=== PATIENT | male | born 1995 | race Caucasian/White ===

== ENCOUNTER 2022-10-26 12:09 | Inpatient (IN) | payer MEDICAID, SELFPAY ==
[2022-10-26 12:41] VITALS: BMI 22.4
[2022-10-26 14:00] VITALS: BP 146/98; PULSE 88; RESP 16; TEMP 36.9; O2SAT 97
--- NOTE | 2022-10-26 14:52 | PC.NURSE ---
PT IS A DIRECT ADMIT FROM [facility]. PT WAS BROUGHT TO [facility] BY POLICE AFTER A CONFLICT WITH PARENTS. IN THE AFFIDAVIT HIS FATHER WROTE THAT THEY WERE TALKING TO PT ABOUT THE FAMILY CAT AND HOW SHE HAD BEEN SHOWING SIGNS OF DECLINE. PT BECAME AGITATED AND TOLD FATHER THAT THE CAT CANNOT HE NAMED HIM AND IF THE CAT THEN HE WOULD TADEO PUNCH HIM SO HARD THAT HIS FATHER WOULD NOT BE ABLE TO HAVE ANY MORE KIDS AFTER PT IS GONE. PT PARENTS BOTH STATE IN THE AFFIDAVITS THAT HIS MOODS HAVE BEEN EXTREME HIGHS OR EXTREME LOWS. UPON ADMIT TO OUR UNIT PT IS PACING THE WHOLE TIME DURING ASSESSMENT. PT APPEARED ANXIOUS, AND PT WAS RAMBLING AFTER EVERY QUESTION. PT CONTINUED TO PACE AFTER ASSESSMENT.
--- NOTE | 2022-10-26 15:32 | PC.NURSE ---
PT IS PACING THE HALLWAYS, PT DENIES AH/VH. HOWEVER, PT APPEARS TO BE INTERNALLY OCCUPIED. PT IS CONVERSING WITH SELF AND GESTURING WHILE PACING. PT CONTINUES THIS BEHAVIOR EVEN WHEN NOT PACING. WILL CONTINUE TO MONITOR.
--- NOTE | 2022-10-26 17:51 | PC.NURSE ---
PT ARRIVED TO UNIT AT 1209 PM. WHILE LOOKING THROUGH HIS 96 HOUR PAPERWORK THIS RN HAD DIFFICULTIES FINDING JUDGES SIGNATURE AUTHENTICATING THE PAPERWORK FROM THE PRIOR FACILITY. DUE TO THIS THIS RN WANTED TO SPEAK WITH DOCTOR TO ENSURE THAT PT IS ACTUALLY ON A 96 HOUR HOLD BEFORE PROVIDING PAPERWORK TO PT. THIS RN SPOKE WITH ABOUT PAPERWORK AND WAS ABLE TO LOCATE THE SIGNATURE TO AUTHENTICATE 96 HOUR HOLD. PAPERWORK WAS IMMEDIATELY SERVED TO PT UPON FINDING THIS INFORMATION.
[2022-10-26 21:37] VITALS: BP 114/71; PULSE 113; RESP 17; TEMP 36.9; O2SAT 90
--- NOTE | 2022-10-27 05:09 | PC.NURSE ---
Security was in the unit checking on the status of the patient's when this pt came to the nurses station without a shirt on. Pt became hyperfixated on the upscale security officer, becoming aggressive when the staff told him that he had a shirt on out in the hallway. Pt called the upscale security officer a faggot then stated do you have a problem . This nurse got the pts attention by calling his name and instructing him that he had to be clothed at all times. Pt began making several hand gestures, including pray hand, then laughing maniacally and walking back to his room. After this even took place the pt came out yet again looking for the upscale security officer to see if he wanted to have a conversation with him . Informed the pt that that was the upscale security officer, and he was performing rounds throughout the hospital to which he stated he secured you didn't he . Informed pt that he did not need to speak to staff that way, to which he laughed maniacally and went back to his room.
--- NOTE | 2022-10-27 06:48 | W.PM.NPUH&PS ---
Providers/Chief Complaint Admitting Physician: Luke Sykes MD Chief Complaint: Fit for confinement [facility] NPU History of Present Illness Jhonatan Clemente is a 27 year old male who presented to the outside hospital with psychosis on a 96-hour hold. He was transferred to [facility] and admitted to the neuropsychiatric unit for definitive treatment of those issues. He reports that he has had previous psychiatric hospitalizations. When asked about previous treatment he asked if it would just be faster to talk to his parents about his medical history. When asked about being on medications in the past, he stated ?if you consider marijuana a medication.? He reports that he has smoked cigarettes, and asked this aligner typewriter if I had cigarettes because he would appreciate getting one. He denies vaping in awhile. He reports that he has not had alcohol ?in a minute,? for a few weeks since he has been to a bunch of hospitals. He denies marijuana use for about three weeks, he reports probably using marijuana regularly. He denies methamphetamine use and endorses that he tried cocaine once. He reports that he went to drug rehabilitation. He then left the interview. He was quite bizarre during the interview with very demonstrative arm gestures and facial contortions depending on how annoyed he was with the question. Was unable to get any additional history PSYCHIATRIC HISTORY: As above. SUBSTANCE ABUSE HISTORY: As above. Meds NPU Home Medications Medication Instructions Recorded Confirmed Last Taken Type No Known Home Medications 10/26/22 10/26/22 Unknown History Allergies Allergy/AdvReac Type Severity Reaction Status Date / Time No Known Allergies Allergy Verified 10/26/22 23:09 Mental Status Exam MSE Comments: This is a well-nourished, well-developed slender, white male, in hospital scrubs, with adequate grooming and eye contact. No abnormal movements except for significant psychomotor agitation and frequent gesturing and directions where people are not present and in ways that do not make sense in relation to the gesture. Mostly uncooperative with exam in moderate to extreme distress. Speech was normal rate and volume. Mood described as good; affect bizarre and labile. Thought process, disorganized. Thought content: patient denied any suicidal or homicidal ideation, there were no delusions reported but clear bizarre, paranoid and grandiose delusions noted, patient denied any auditory or visual hallucinations but was clearly attending to internal stimuli. Attention, concentration, and memory appeared mostly unreliable, but none were formally tested. Alert and oriented times person and place. Insight, judgment and impulse control are impaired. Vitals/I&O/Wt Last Vital Signs Temp 98.4 F 10/26/22 21:37 Pulse 113 H 10/26/22 21:37 Resp 17 10/26/22 21:37 BP 114/71 10/26/22 21:37 Pulse Ox 90 10/26/22 21:37 O2 Del Method Room Air 10/26/22 21:37 Weight last 48 hrs Weight 74.843 kg A&P Assessment and plan (1) Bipolar disorder with psychotic features: (2) Tiesha: Plan This is a 27-year-old white male with a reported history of previous bipolar episode at least once who presents in avel tiesha with significant movements of limited purpose 1. Continue current medication. 2. Encourage individual, group, and milieu therapy. 3. Continue q-15-minute checks for safety. 4. Recommend sober living treatment at the highest level of care to which the patient is willing to commit. 5. Plan to initiate 21-day hold tomorrow so that we will have a better chance to medicate appropriately sooner. Attestations NPU Medical Necessity Statement*: Inpatient hospitalization is medically necessary and the clinically appropriate intervention, at this time. We will monitor medications and make changes as indicated. Patient will be in the hospital for over two midnights. Likely length of stay is 10-14 days. Coding Level of Care Code Acute Code for Chg Fwd Diagnoses Bipolar disorder with psychotic features F31.9 Tiesha F30.9
--- NOTE | 2022-10-27 07:47 | PC.NURSE ---
PT IS PACING THE HALLWAYS. PT APPEARS INTERNALLY OCCUPIED. PT APPROACHED THE NURSES STATION AND BEGAN BEATING ON HIS CHEST LIKE A GORILLA. THIS RN ASKED PT IF HE WAS OK, PT BECAME QUICKLY IRRITATED STATING DOES THIS FUCKING BOTHER YOU GUYS THIS RN REPLIED WITH IM JUST WONDERING WHAT YOU ARE DOING. PT THEN REPLIED IM HELPING, DO YOU KNOW WHAT HELP MEANS? WELL I DO, SO CAN YOU SHUT THE FUCK UP? PT PROCEEDED TO BEAT ON CHEST LIKE A GORILLA FOR ANOTHER 10 SECONDS AND THEN BEGAN PACING THE HALLWAYS AGAIN. PT THEN APPROACHED THE NURSES STATION AND LOOKED AT THIS RN AND MALACHI NAIR AND STATED DO YOU GUYS WANNA FUCK? WHEN STAFF REPLAIED NO AND ATTEMPTED TO EDUCATE ON APPROPRIATENESS PT BEGAN STATING WELL THAT MEANS REALITY IS REAL BECAUSE YOU TWO DONT WANT TO FUCK ME.
--- NOTE | 2022-10-27 12:26 | PC.NURSE ---
PT CONTINUES TO PACE THE HALLWAYS. PT REMAINS LABILE. PT STILL APPEARS INTERNALLY OCCUPIED WHILE CONTINUING TO DENIES HALLUCINATIONS OF ALL KINDS. PT CONTINUES TO GESTURE TO SELF. PT ALSO GESTURES AT STAFF AND DOES NOT TALK BUT BECOMES FRUSTRATED WHEN NOT UNDERSTOOD. PT HAS BEEN EDUCATED ON THE IMPORTANCE OF COMMUNICATION. PT RESISTANT TO LEARNING.
[2022-10-27 14:00] VITALS: BP 136/97; PULSE 80; RESP 20; TEMP 36.9; O2SAT 96
[2022-10-27] MEDS: trazodone 50 mg Tablet PO (19:15)
[2022-10-27] MEDS: hyDROXYzine 25 mg Capsule 50 MG PO (19:15)
[2022-10-27] MEDS: LORazepam 2 mg/mL INJ 1 mL IM (19:51)
[2022-10-27] MEDS: diphenhydrAMINE 50 mg/mL SDV 1mL IM (19:53)
[2022-10-27] MEDS: haloperidol inj 5 mg/mL INJ 1 mL IM (19:53)
[2022-10-27 22:18] VITALS: RESP 17
[2022-10-28] MEDS: diphenhydrAMINE 50 mg Capsule PO (12:25)
[2022-10-28] MEDS: haloperidol 5 mg Tablet PO (12:25)
[2022-10-28] MEDS: LORazepam 2 mg Tablet PO (12:26)
--- NOTE | 2022-10-28 12:31 | PC.NURSE ---
Administered oral B52 to patient for touching patients, egging patient's on in an attempt to fight them. 5mg Haldol, 50mg Benadryl, 2mg Ativan.
--- NOTE | 2022-10-28 13:40 | PC.NURSE ---
pt continues to be verbally abusive to staff and other patients, pt continues to ask one on one sitter if he wants to see his tabatha. attempts to verbally de escalate pt is unsuccessful. pt walking in hallway being disruptive towards other patients.
[2022-10-28] MEDS: OLANZapine 5 mg ODT PO (13:43)
[2022-10-28 14:00] VITALS: BP 132/81; PULSE 110; RESP 20; TEMP 36.6; O2SAT 95
--- NOTE | 2022-10-28 17:48 | W.PM.NPUPNS ---
Subjective NPU Subjective: Patient presented today reporting that he is doing okay. But he is clearly not okay. He continues to have aimless and purposeless hyperkinetic behaviors and not be able to engage in regular [id number] conversation and is unable to sit still. He did require as needed medication with limited impact. We discussed the fact that we were applying for a 21-day hold now instead of next week when his 96-hour hold expires because his need for interventions are that dire. Mental Status Exam MSE Comments: This is a well-nourished, well-developed slender, white male, in hospital scrubs, with adequate grooming and eye contact. No abnormal movements except for significant psychomotor agitation and frequent gesturing and directions where people are not present and in ways that do not make sense in relation to the gesture. Mostly uncooperative with exam in moderate to extreme distress. Speech was normal rate and volume. Mood described as fine; affect bizarre and labile. Thought process, disorganized. Thought content: patient denied any suicidal or homicidal ideation, there were no delusions reported but clear bizarre, paranoid and grandiose delusions noted, patient denied any auditory or visual hallucinations but was clearly attending to internal stimuli. Attention, concentration, and memory appeared mostly unreliable, but none were formally tested. Alert and oriented times person and place. Insight, judgment and impulse control are impaired. Vitals/I&O/Wt Last Vital Signs Temp 98 F 10/28/22 14:00 Pulse 110 H 10/28/22 14:00 Resp 12 10/28/22 20:16 BP 132/81 10/28/22 14:00 Pulse Ox 95 10/28/22 14:00 O2 Del Method Room Air 10/26/22 21:37 A&P Assessment and plan (1) Bipolar disorder with psychotic features: (2) Priscila: Plan This is a 27-year-old white male with a reported history of previous bipolar episode at least once who presents in avel priscila with significant movements of limited purpose 1. Continue current medication. 2. Encourage individual, group, and milieu therapy. 3. Continue q-15-minute checks for safety. 4. Recommend sober living treatment at the highest level of care to which the patient is willing to commit. 5. Submitted 21-day hold paperwork today so that we will have a better chance to medicate appropriately sooner. Attestations NPU Medical Necessity Statement*: Inpatient hospitalization is medically necessary and the clinically appropriate intervention, at this time. We will monitor medications and make changes as indicated. Likely length of stay is 10-14 days. Coding Level of Care Code Acute Code for Chg Fwd Diagnoses Bipolar disorder with psychotic features F31.9 Priscila F30.9
[2022-10-28 20:16] VITALS: RESP 12
--- NOTE | 2022-10-29 05:58 | PC.NURSE ---
Patient has been pacing the hallway & attempting to intimidate, antagonize & trigger the staff & peers. At one point, he walked out of his room & made the statement I can flush my shit or throw it you , threatened to whoop ass . He told this RN to get my fucking coffee , he continues to pace the whaley.
--- NOTE | 2022-10-29 07:46 | W.PM.NPUPNS ---
Subjective NPU Subjective: Patient presents today continuing to be extremely hyperkinetic with purposeless behavior including skipping of the hallways etc. he had received as needed medication yesterday and sleeping well until the account development associate came and served for his 21-day hold and he has not been asleep since then. That was around 11 PM last night. We discussed changing his room assignment to assist in getting him a place to let out his energy without concerning others. Mental Status Exam MSE Comments: This is a well-nourished, well-developed slender, white male, in hospital scrubs, with adequate grooming and eye contact. No abnormal movements except for significant psychomotor agitation and frequent gesturing and directions where people are not present and in ways that do not make sense in relation to the gesture. Mostly uncooperative with exam in moderate to extreme distress. Speech was normal rate and volume. Mood described as fine; affect bizarre and labile. Thought process, disorganized. Thought content: patient denied any suicidal or homicidal ideation, there were no delusions reported but clear bizarre, paranoid and grandiose delusions noted, patient denied any auditory or visual hallucinations but was clearly attending to internal stimuli. Attention, concentration, and memory appeared mostly unreliable, but none were formally tested. Alert and oriented times person and place. Insight, judgment and impulse control are impaired. Vitals/I&O/Wt Last Vital Signs Temp 97.9 F 10/29/22 20:58 Pulse 119 H 10/29/22 20:58 Resp 18 10/29/22 20:58 BP 137/85 10/29/22 20:58 Pulse Ox 96 10/29/22 20:58 O2 Del Method Room Air 10/29/22 20:58 Weight last 48 hrs Weight 74.298 kg A&P Assessment and plan (1) Bipolar disorder with psychotic features: (2) Priscila: Plan This is a 27-year-old white male with a reported history of previous bipolar episode at least once who presents in avel priscila with significant movements of limited purpose 1. Continue current medication. 2. Encourage individual, group, and milieu therapy. 3. Continue q-15-minute checks for safety. 4. Recommend sober living treatment at the highest level of care to which the patient is willing to commit. 5. Submitted 21-day hold paperwork 10/28/2022 with hearing 10/31/2022 so that we will have a better chance to medicate appropriately and sooner. Staff counseled on attempting as needed medications sooner in his decompensations in an attempt to avoid escalations. Attestations NPU Medical Necessity Statement*: Inpatient hospitalization is medically necessary and the clinically appropriate intervention, at this time. We will monitor medications and make changes as indicated. Likely length of stay is 10-14 days. Coding Level of Care Code Acute Code for [facility] Fwd Diagnoses Bipolar disorder with psychotic features F31.9 Priscila F30.9
[2022-10-29] MEDS: haloperidol 5 mg Tablet PO ×2 (11:14→19:34)
[2022-10-29] MEDS: LORazepam 2 mg Tablet PO ×2 (11:14→19:34)
[2022-10-29] MEDS: diphenhydrAMINE 50 mg Capsule PO ×2 (11:14→19:34)
--- NOTE | 2022-10-29 11:15 | PC.NURSE ---
Administered 5mg Haldol, 2mg lorazepam, and 50mg benadryl for agitation, verbal threats, threats to harm others, and sexual misconduct. Patient offered to show this nurse his penis, patient said he was masterbating while this nurse was standing outside his shower. Patient threatened to punch the riley and flip out.
[2022-10-29 14:00] VITALS: RESP 16
[2022-10-29 20:58] VITALS: BP 137/85; PULSE 119; RESP 18; TEMP 36.6; O2SAT 96
[2022-10-30] MEDS: haloperidol 5 mg Tablet PO ×2 (05:31→19:02)
[2022-10-30] MEDS: LORazepam 2 mg Tablet PO ×2 (05:31→19:02)
[2022-10-30] MEDS: diphenhydrAMINE 50 mg Capsule PO ×2 (05:31→19:02)
--- NOTE | 2022-10-30 05:37 | PC.NURSE ---
Patient got up at approximately 0500 & started pacing [facility], belittling 1:1 constantly as he paces. He walked into a patient's room to get water on his toothbrush , he was immediately redirected by staff & proceeded to cuss staff. He came to the RN station to ask what day it was, he was told Monday , then asked what day of the month & was told the , then asked what month & was told October, he then proceeded to ask this RN why did we have to go all the way around that , then called this RN a indigo zhong . As he is pacing the hallway, he is telling the 1:1 you are a stupid retard, you don't even walk right . This RN gave him an oral B52.
[2022-10-30 13:53] VITALS: BP 112/77; PULSE 89; RESP 16; TEMP 37.1; O2SAT 98
--- NOTE | 2022-10-30 17:50 | P.NPUPN_ITS ---
Subjective NPU Subjective: Patient is a 27-year-old white male transferred here admitted with priscila after making threats to his father. The patient had been placed off one-to-one today as he had not made any threats to others. Staff notes the patient had difficulties with sleep. He had been informed of the likelihood of him being able to meet with a water service supervisor regarding his threats towards his father. The patient had continued to appear suspicious and wandered around the unit without any purposeful behavior. He had acknowledged previously having been manic. But had a moment of clarity this time as opposed to being manic and being hospitalized in the past for this behavior. Mental Status Exam MSE Comments: This is a well-nourished, well-developed slender, white male, in hospital scrubs, with adequate grooming and eye contact. No abnormal movements except for significant psychomotor agitation. He was unfriendly and uncooperative with exam in moderate to extreme distress. Speech was normal in rate, rhythm and normal volume. Mood described as fine; affect was intense and irritable. Thought process was tangential. Thought content: patient denied any suicidal or homicidal ideation, there were no delusions reported but clear bizarre, paranoid and grandiose delusions noted. Patient denied any auditory or visual hallucinations but was clearly attending to internal stimuli. Attention, concentration, and memory appeared mostly unreliable, but none were formally tested. Alert and oriented times person and place. Insight, judgment and impulse control are impaired. Vitals/I&O/Wt Last Vital Signs Temp 98.8 F 10/30/22 13:53 Pulse 89 10/30/22 13:53 Resp 16 10/30/22 13:53 BP 112/77 10/30/22 13:53 Pulse Ox 98 10/30/22 13:53 O2 Del Method Room Air 10/29/22 20:58 Weight last 48 hrs Weight 74.298 kg A&P Assessment and plan (1) Bipolar disorder with psychotic features: (2) Priscila: Plan This is a 27-year-old white male with a reported history of previous bipolar episode at least once who presents in avel priscila with significant movements of limited purpose 1. Continue current medication. 2. Encourage individual, group, and milieu therapy. 3. Continue q-15-minute checks for safety. 4. Recommend sober living treatment at the highest level of care to which the patient is willing to commit. 5. Submitted 21-day hold paperwork 10/28/2022 with hearing 10/31/2022 so that we will have a better chance to medicate appropriately and sooner. Staff counseled on attempting as needed medications sooner in his decompensations in an attempt to avoid escalations. Attestations NPU Medical Necessity Statement*: Inpatient hospitalization is medically necessary and the clinically appropriate intervention, at this time. We will monitor medications and make changes as indicated. Likely length of stay is 10-14 days. Coding Level of Care Code Acute Code for Chg Fwd Diagnoses Bipolar disorder with psychotic features F31.9 Priscila F30.9
--- NOTE | 2022-10-30 19:02 | PC.NURSE ---
PATIENT VERBALLY AGGRESSIVE AND CREATING A HOSTILE ENVIRONMENT ON THE UNIT. ADMINISTERED 2MG ATIVAN, 5MG HALDOL, AND 50MG BENADRYL TO PATIENT. PATIENT TOOK MEDICATION WITH NO ISSUE. WILL CONTINUE TO MONITOR PATIENT CLOSELY.
[2022-10-30 22:00] VITALS: BP 132/95; PULSE 111; RESP 18; TEMP 36.8; O2SAT 97
[2022-10-31 06:00] VITALS: BP 127/91; PULSE 78; RESP 18; TEMP 36.3; O2SAT 97
--- NOTE | 2022-10-31 06:23 | PC.NURSE ---
Pt came to the nurses station stating he needed to go outside and get his socks he left outside yesterday, b/c he took them off to walk barefoot in the dirt . This nurse explained that there would be no socks outside b/c they would've been thrown in the trash. Pt became argumentative with this nurse, and explained that the courtyard gets cleaned up, and if they were left outside then they would've been thrown in the trash. Explained to pt that he could have a new pair of socks if he wanted them. Pt begrudgingly took the new pair of socks and began to pace up and down the hallway. One on one care and redirection provided w/minimal effect.
[2022-10-31] MEDS: diphenhydrAMINE 50 mg Capsule PO ×2 (06:44→14:05)
[2022-10-31] MEDS: LORazepam 2 mg Tablet PO ×2 (06:44→14:05)
[2022-10-31] MEDS: haloperidol 5 mg Tablet PO ×2 (06:44→14:05)
--- NOTE | 2022-10-31 06:45 | PC.NURSE ---
Pt standing at the nurses station staring inside. This nurse asked if there was anything she could do for him, and he stated you could shut the fuck up and stop looking at me. Pt then stomped away from the nurses station. PRN Lorazapam, haldol, and Benadryl administered for increasing agitation and anxiety.
--- NOTE | 2022-10-31 11:37 | PC.NURSE ---
pt is pacing the hallways. pt will occasionally stop in front of the nurses station and just stares. pt is not talking and when asked what he needed pt stated nothing . pt appears flat.
[2022-10-31 14:00] VITALS: BP 127/85; PULSE 98; RESP 18; TEMP 36.5; O2SAT 96
--- NOTE | 2022-10-31 14:06 | PC.NURSE ---
Patient verbally aggressive to patient. Patient wanting to go to dayroom and call him a pussy. Patient instigating other patients, causing a hostile environment on the unit. Administered 50mg Benadryl, 2mg Ativan, 5mg Haldol to patient. will continue to monitor.
--- NOTE | 2022-10-31 15:17 | PC.NURSE ---
off unit for [address]
--- NOTE | 2022-10-31 16:22 | PC.NURSE ---
return to unit from court
--- NOTE | 2022-10-31 19:37 | W.PM.NPUPNS ---
Subjective NPU Subjective: Patient is a 27-year-old white male transferred here admitted with priscila after making threats to his father. The patient was committed for 21-day hold after appearing in front of the nanotechnology technician. He had reported that he had not been offered medications to manage his problem. He had reported that he did not need any medications to manage his priscila. He had continued to appear intrusive and struggled with managing his impulses. He had continued to make odd gestures and appeared significantly hostile while repeatedly complaining to the technical report writer of this note that he did not trust him as he had stated that the technical report writer of this note had not been looking at him in the eye all of the time. The patient had continued to appear rude and demanding on the unit. He had admitted to the use of marijuana and stated that he had previously had a manic episode in the past approximately 2 years ago. He had repeated to the technical report writer of this note that he was looking at someone who was scared . He continued to show evidence of impaired sleep having slept only 3 hours at night while reporting that he had been faking it . Mental Status Exam MSE Comments: This is a well-nourished, well-developed slender, white male, in hospital scrubs, with adequate grooming and intense eye contact. No abnormal movements except for significant psychomotor agitation. He was unfriendly and uncooperative with exam in moderate distress. Speech was normal in rate, rhythm and normal volume. Mood described as fine; affect was intense and irritable. Thought process was tangential. Thought content: patient denied any suicidal or homicidal ideation, there were no delusions reported but clear paranoia noted. He also appeared somewhat grandiose. Patient denied any auditory or visual hallucinations although he did appear to be responding to internal stimuli. Attention, concentration, and memory appeared mostly unreliable, but none were formally tested. Alert and oriented times person and place. Insight, judgment and impulse control are impaired. Vitals/I&O/Wt Last Vital Signs Temp 97.7 F 10/31/22 14:00 Pulse 98 10/31/22 14:00 Resp 18 10/31/22 14:00 BP 127/85 10/31/22 14:00 Pulse Ox 96 10/31/22 14:00 O2 Del Method Room Air 10/30/22 22:00 Weight last 48 hrs Weight 74.298 kg A&P Assessment and plan (1) Bipolar disorder with psychotic features: (2) Priscila: Plan This is a 27-year-old white male with a reported history of previous bipolar episode at least once who presents in avel priscila with significant movements of limited purpose 1. Monitor for worsening priscila, continued irritability. 2. Encourage individual, group, and milieu therapy. 3. Continue q-15-minute checks for safety. 4. Recommend sober living treatment at the highest level of care to which the patient is willing to commit. 5. Patient is now on a 21-day hold. Forced medications to begin tonight. Attestations NPU Medical Necessity Statement*: Inpatient hospitalization is medically necessary and the clinically appropriate intervention, at this time. We will monitor medications and make changes as indicated. Likely length of stay is 10-14 days. Coding Level of Care Code Acute Code for [facility] Diagnoses Bipolar disorder with psychotic features F31.9 Priscila F30.9
[2022-10-31] MEDS: paliperidone ER 3 mg Tablet PO (20:26)
[2022-10-31 21:06] VITALS: BP 131/88; PULSE 91; RESP 18; TEMP 36.7; O2SAT 98
[2022-11-01 05:38] VITALS: BP 114/76; PULSE 116; RESP 18; TEMP 36.6; O2SAT 98
--- NOTE | 2022-11-01 08:36 | PC.NURSE ---
PT BEGAN TO ARGUE WITH TWO OTHER PT. THIS NURSES AND A EXAMINER RATING CLERK INTERVENED. PT WAS REDIRECTABLE AND WILLINGLY WENT BACK INTO HIS ROOM FOR TO CALM THE SITUATION DOWN. PT DEMANDING OTHERS TO BE QUITE DURING HIS SHOW. PT WAS EDUCATED THAT THE DAYROOM IS FOR EVERYONE AND THEY ARE ABLE TO BE IN THERE AND TALKING TO EACH OTHER.
[2022-11-01] MEDS: paliperidone ER 3 mg Tablet PO ×2 (08:48→19:39)
[2022-11-01] MEDS: nicotine 2 mg Gum BUCCAL (13:08)
[2022-11-01 14:00] VITALS: BP 142/87; PULSE 115; RESP 20; TEMP 37.1; O2SAT 97
--- NOTE | 2022-11-01 15:12 | PC.NURSE ---
AT APPROXIMATELY 1445 AN AID CAME TO THIS RN AND STATED THAT THE PT HAD A NOSE BLEED. THIS RN IMMEDIATELY WENT TO ASSESS THE SITUATION. AT THE TIME THIS NURSE SAW PT, PT WAS SITTING IN THE FLOOR OF THE HALLWAY IN FRONT OF THE NURSES STATION WITH BLOOD DRIPPING FROM HIS NOSE. PT WAS ASKED IF HE HIT HIS NOSE AT ALL TO WHICH PT STATED NO THEN PT WAS ASKED IF HE OCCASIONALLY GETS NOSE BLEEDS TO WHICH THE PT REPLIED YES BUT NOT THIS BAD. PT WAS INSTRUCTED TO HOLD GAUZE TO CATCH THE BLOOD. PT WAS ALSO INSTRUCTED TO PLACE PRESSURE WITH GAUZE TO THE LABIAL FRENUM, THE AREA UNDERNEATH THE NOSE INSIDE THE UPPER LIP. PT DID REQUESTED. DURING THIS TIME PT BECAME TEARFUL AND BEGAN STATING GOD IS SHOWING ME, THIS IS HIS SIGN TO ME. PT WAS AIDED TO HIS ROOM AFTER THE BLEEDING SUBSIDED WHICH TOOK ABOUT 10 MINUTES. PT WAS GIVEN SUPPLIES FOR A SHOWER. THIS NURSE TOLD PT TO LET HER KNOW IF HE NEEDED ANYTHING ELSE OR IF HE NEEDED TO TALK PT WAS STILL TEARFUL AT THIS TIME. PT THEN STATED NO I JUST NEED TO TALK TO GOD THANK YOU ABHISHEK. PT PROCEEDED TO SHOWER AND CAME AND REQUESTED A BIBLE. THIS WAS PROVIDED, PT THEN RETURNED THE BIBLE TO NURSE AND STATED THIS IS POINTLESS TURNING TO THE LORD NOW IS A DISGRACE.
[2022-11-01] MEDS: trazodone 50 mg Tablet PO (19:26)
[2022-11-01] MEDS: hyDROXYzine 25 mg Capsule 50 MG PO (19:26)
--- NOTE | 2022-11-01 19:28 | W.PM.NPUPNS ---
Subjective NPU Subjective: Patient is a 27-year-old white male transferred here admitted with priscila after making threats to his father. He had minimized any threats to his father. He continued to require little sleep having slept only 2 hours. He had reported that he was fine. He had proceeded on the unit to engage in bizarre behavior as he was seen skipping the hallway and blowing kisses to the headline writer of this note. He reported a past history of use of hallucinogens that had triggered a previous episode similar to this. He reported no side effects from his medication and had tolerated and taken the medication orally without any issue. The patient had remained intrusive while showing evidence of having difficulties with maintaining personal distance with other peers while having made slight verbal threats to others with no physical aggression noted. Mental Status Exam MSE Comments: This is a well-nourished, well-developed slender, white male, in hospital scrubs, with adequate grooming and intense eye contact. No abnormal movements except for significant psychomotor agitation. He had been engaging in some strange body movements on the unit. He was unfriendly and uncooperative with exam in no acute distress today. Speech was normal in rate, rhythm and normal volume. Mood described as fine; affect was irritable and mood incongruent. Thought process was tangential. Thought content: patient denied any suicidal or homicidal ideation, there were no delusions reported but clear paranoia noted. He also appeared somewhat grandiose with significant ideas of reference. Patient denied any auditory or visual hallucinations although he did appear to be responding to internal stimuli. Attention, concentration, and memory appeared mostly unreliable, but none were formally tested. Alert and oriented times person and place. Insight, judgment and impulse control are impaired. Vitals/I&O/Wt Last Vital Signs Temp 98.7 F 11/01/22 14:00 Pulse 115 H 11/01/22 14:00 Resp 20 H 11/01/22 14:00 BP 142/87 11/01/22 14:00 Pulse Ox 97 11/01/22 14:00 O2 Del Method Room Air 11/01/22 05:38 A&P Assessment and plan (1) Bipolar disorder with psychotic features: (2) Priscila: Plan This is a 27-year-old white male with a reported history of previous bipolar episode at least once who presents in avel priscila with significant movements of limited purpose 1. Monitor for worsening prisclia, continued irritability. 2. Encourage individual, group, and milieu therapy. 3. Continue q-15-minute checks for safety. 4. Recommend sober living treatment at the highest level of care to which the patient is willing to commit. 5. Patient is now on a 21-day hold. Increase Invega 3mg bid. Attestations NPU Medical Necessity Statement*: Inpatient hospitalization is medically necessary and the clinically appropriate intervention, at this time. We will monitor medications and make changes as indicated. Likely length of stay is 10-14 days. Coding Level of Care Code Acute Code for Chg Fwd Diagnoses Bipolar disorder with psychotic features F31.9 Priscila F30.9
[2022-11-01] MEDS: OLANZapine 5 mg ODT PO (19:39)
[2022-11-01 22:00] VITALS: BP 147/104; PULSE 105; RESP 18; TEMP 36.4; O2SAT 94
[2022-11-02 06:00] VITALS: PULSE 114; RESP 18; TEMP 36.4; O2SAT 97
[2022-11-02] MEDS: diphenhydrAMINE 50 mg Capsule PO ×2 (08:58→17:50)
[2022-11-02] MEDS: haloperidol 5 mg Tablet PO ×2 (08:58→17:50)
[2022-11-02] MEDS: paliperidone ER 3 mg Tablet PO ×2 (08:58→17:50)
[2022-11-02] MEDS: LORazepam 2 mg Tablet PO ×2 (08:58→17:50)
--- NOTE | 2022-11-02 10:09 | PC.NURSE ---
PT IS CURRENTLY SITTING IN THE DAYROOM. PT IS INTRUSIVE AND DEMANDING TO STAFF AND OTHER PTS. PT IS DIFFICULT TO REDIRECT. PT IS FOCUSED ON A STONE THAT WAS FOUND AND THROWN AWAY BY SUCTION WORKER. PT KEEPS ASKING OTHER STAFF MEMBERS HAVE A STONE AND ASKING THEM TO THROW IT AWAY. PT STATES I KNOW WHY YOU HAVE A STONE AND I NEED YOU TO THROUGH IT AWAY. I ALREADY THREW AWAY MY STONE THATS HOW MUCH I CARED ABOUT MY STONE I DIDNT GIVE A FUCK ABOUT MY STONE. PT CURRENTLY DENIES NEED AND HAS BEEN GIVEN MEDICATION TO LOWER ANXIETY. WILL CONTINUE TO MONITOR PT ACTIVITY.
--- NOTE | 2022-11-02 11:45 | PC.NURSE ---
Pt is in manic state of mind, very intrusive with others conversations, personal space invasion, cussing and making lude and rude statements towards staff members and other peers. Pt is upsetting other pt's on the unit with his behaviors, nursing staff have encouraged pt to step back and walk away from several different encounters.
[2022-11-02 14:00] VITALS: BP 93/50; PULSE 130; RESP 18; TEMP 36.6; O2SAT 95
--- NOTE | 2022-11-02 17:46 | P.NPUPN_ITS ---
Subjective NPU Subjective: Patient is a 27-year-old white male transferred here admitted with priscila after making threats to his father. Patient continued to require significant redirection on the milieu. He had continued to make bizarre statements and continued to appear grandiose. He had slept less than 5 hours. He reported that he had been thankful that he was here in the hospital but appeared to be unable to elaborate regarding why. He had been seen to have acute episodes of intense crying at times followed by periods of laughing. He reported that he was fine. He had been tolerating and taking all his of his oral medications without any particular issue and reported no side effects at this time. Mental Status Exam MSE Comments: This is a well-nourished, well-developed slender, white male, in hospital s crubs, with adequate grooming and intense eye contact. No abnormal movements except for significant psychomotor agitation. He continued to engage in strange body movements on the unit. He was unfriendly and minimally cooperative with exam in no acute distress today. Speech was normal in rate, rhythm and with increased volume. Mood described as great.; affect was labile and euthymic.. Thought process was tangential. Thought content: patient denied any suicidal or homicidal ideation, there were no delusions reported but clear paranoia noted. He also appeared somewhat grandiose with significant ideas of reference. Patient denied any auditory or visual hallucinations although he did appear to be responding to internal stimuli. Attention, concentration, and memory appeared mostly unreliable, but none were formally tested. Alert and oriented times person and place but not reason. Insight, judgment and impulse control are impaired. Vitals/I&O/Wt Last Vital Signs Temp 98 F 11/02/22 14:00 Pulse 130 H 11/02/22 14:00 Resp 18 11/02/22 14:00 BP 93/50 11/02/22 14:00 Pulse Ox 95 11/02/22 14:00 O2 Del Method Room Air 11/02/22 06:00 A&P Assessment and plan (1) Bipolar disorder with psychotic features: (2) Priscila: Plan This is a 27-year-old white male with a reported history of previous bipolar episode at least once who presents in avel priscila with significant movements of limited purpose 1. Monitor for worsening priscila, continued irritability. 2. Encourage individual, group, and milieu therapy. 3. Continue q-15-minute checks for safety. 4. Recommend sober living treatment at the highest level of care to which the patient is willing to commit. 5. Patient is now on a 21-day hold. Continue Invega 3mg bid. Added Klonopin 1mg at night for sleep. Attestations NPU Medical Necessity Statement*: Inpatient hospitalization is medically necessary and the clinically appropriate intervention, at this time. We will monitor medications and make changes as indicated. Likely length of stay is 10-14 days. Coding Level of Care Code Acute Code for Chg Fwd Diagnoses Bipolar disorder with psychotic features F31.9 Priscila F30.9
[2022-11-02 22:00] VITALS: RESP 16
[2022-11-02] MEDS: CLONazepam 1 mg Tablet PO (22:17)
--- NOTE | 2022-11-03 05:58 | PC.NURSE ---
Addendum entered by Gideon Leon RN 11/03/22 06:52: Oral B52 given. Addendum entered by Gideon Leon RN 11/03/22 06:34: Patient continues to berate every employee that comes near & waves across the nurses station to a patient that he purposely instigates & had to be from. Original Note: Patient woke approximately at 0545, ranting about nonsense & making in appropriate comments to staff, calling staff fucking idiots & pacing in hallway & attempting to create arguments.
[2022-11-03] MEDS: haloperidol 5 mg Tablet PO ×3 (06:27→21:35)
[2022-11-03] MEDS: diphenhydrAMINE 50 mg Capsule PO ×3 (06:27→21:35)
[2022-11-03] MEDS: LORazepam 2 mg Tablet PO ×3 (06:28→21:35)
[2022-11-03] MEDS: paliperidone ER 3 mg Tablet PO ×2 (09:10→17:42)
[2022-11-03 14:00] VITALS: BP 116/75; PULSE 91; RESP 16; TEMP 36.6; O2SAT 97
--- NOTE | 2022-11-03 16:22 | PC.NURSE ---
Pt was administered an oral B52 for pt becoming agitated, talking with profanity, sexual comments towards staff. 2mg Ativan 5mg Haldol 50 mg Benadryl all given PO.
--- NOTE | 2022-11-03 17:04 | P.NPUPN_ITS ---
Subjective NPU Subjective: Patient is a 27-year-old white male transferred here admitted with priscila after making threats to his father. Patient continued to require significant redirection on the milieu. He had continued to make bizarre statements and continued to appear grandiose. He had slept less than 5 hours. He reported that he had been thankful that he was here in the hospital but appeared to be unable to elaborate regarding why. He had been seen to have acute episodes of intense crying at times followed by periods of laughing. He reported that he was fine. He had been tolerating and taking all his of his oral medications without any particular issue and reported no side effects at this time. He r eported that he was uncertain if he would return home when discharged. He had required as needed medications as he had been increasingly agitated last night and activated while he was attempting to move around furniture in the group room. Mental Status Exam MSE Comments: This is a well-nourished, well-developed slender, white male, in hospital scrubs, with adequate grooming and intense eye contact. No abnormal movements with no psychomotor agitation noted on interview. He continued to engage in strange body movements on the unit. He was friendly and more social today. Speech was normal in rate, rhythm and with increased volume. Mood described as great.; affect was expansive. Thought process was tangential. Thought content: patient denied any suicidal or homicidal ideation, there were no delusions reported but clear paranoia noted. He also appeared grandiose with significant ideas of reference. Patient denied any auditory or visual hallucinations and did not appear to be responding to internal stimuli. His recent and remote memory appeared grossly intact. Alert and oriented times person and place but not reason. Insight, judgment and impulse control are impaired. Vitals/I&O/Wt Last Vital Signs Temp 97.9 F 11/03/22 14:00 Pulse 91 11/03/22 14:00 Resp 16 11/03/22 14:00 BP 116/75 11/03/22 14:00 Pulse Ox 97 11/03/22 14:00 O2 Del Method Room Air 11/03/22 14:00 A&P Assessment and plan (1) Bipolar disorder with psychotic features: (2) Priscila: Plan This is a 27-year-old white male with a reported history of previous bipolar episode at least once who presents in avel priscila with significant movements of limited purpose 1. Monitor for worsening priscila, continued irritability. 2. Encourage individual, group, and milieu therapy. 3. Continue q-15-minute checks for safety. 4. Recommend sober living treatment at the highest level of care to which the patient is willing to commit. 5. Patient is now on a 21-day hold. Continue Invega 3mg bid. Continue Klonopin at 1mg at night for sleep. Attestations NPU Medical Necessity Statement*: Inpatient hospitalization is medically necessary and the clinically appropriate intervention, at this time. We will monitor medications and make changes as indicated. Likely length of stay is 10-14 days. Coding Level of Care Code Acute Code for Chg Fwd Diagnoses Bipolar disorder with psychotic features F31.9 Priscila F30.9
--- NOTE | 2022-11-03 17:16 | PC.NURSE ---
patient continues to be very intrusive to women, with coworkers and patients. Patient not redirectable and continues to get on the floor
[2022-11-03] MEDS: CLONazepam 1 mg Tablet PO (21:22)
--- NOTE | 2022-11-03 22:35 | PC.NURSE ---
Addendum entered by Gideon Leon RN 11/04/22 05:30: Patient was asked multiple times at the nurses station if he wanted his medication oral, IM or to just go to the day room. Patient pretended to be deaf and once it was repeated again, patient stated that he just wanted to see the staff member be a bitch and then stated give me the damn medications. Addendum entered by Gideon Leon RN 11/04/22 04:32: Patient came up to the RN desk, when asked what he needed, he mumbled mostly incomprehensible words We can only keep him for so long , attempting to provoke & degrade the staff talking about we are just dumb women & refusing to leave the desk mocking everything that is said whether it is said to him or not. Original Note: At approximately 2100, patient was woken up by a patient across the whaley by whistling nonstop & refusing to stop. Patient came in the hallway & made sexually inappropriate comments to staff stating that he was masturbating to her face earlier . Staff attempted to redirected him, which only made him angrier. He started calling staff fucking cunts, fucking idiots, retards, dumbasses, fucking liars, he made hand gestures & noises to more than 1 staff member as though he was shooting us with a machine gun. We asked him to please go to his room, he refused & told us we were nothing but stupid women & didn't need to listen us, he kept chanting go ahead, hit me, hit him, I know you want to hit me put your hands on me & I'll fucking sidney this place faster than anything . Security came & spoke to him, which he complied with. He then got on the phone & proceeded to call his parents & told them how stupid they were, he didn't care if they were . This RN was able to give him an oral B52.
[2022-11-04] MEDS: haloperidol 5 mg Tablet PO (05:22)
[2022-11-04] MEDS: diphenhydrAMINE 50 mg Capsule PO (05:22)
[2022-11-04] MEDS: LORazepam 2 mg Tablet PO (05:22)
[2022-11-04] MEDS: water for injection-sterile 10 ML 2.1 ML (06:43)
[2022-11-04] MEDS: ziprasidone 20 mg/mL SDV IM (06:43)
[2022-11-04] MEDS: LORazepam 2 mg/mL INJ 1 mL IM ×2 (06:54→14:33)
--- NOTE | 2022-11-04 07:39 | PC.NURSE ---
at approximately 06:17, the pt was awakened by another pt having a code 10. This pt immediately got invasive with the staff and situation and started having a nose bleed. The pt was getting in the staffs face stating things like You are helping another pt and not helping me because you guys don't give a fuck about anyone else while yelling the pt was also dripping blood down his arm, clothes and the floor. When staff asked pt to return to room and clean himself up pt stated would you guys just shut the fuck up and quit talking to me. Staff attempted to redirect pt multiple times and the pt just kept getting more invasive with the other pt and verbally aggressive with staff including the pt threatening to spit blood in the staffs face. The pt was pacing the halls and getting in the face of everyone he walked by and was verbally assaultive and aggressive. The RN notified the DrHaley who gave orders to give 20mg IM Geodon and 2mg IM ativan. Security and staff escorted pt to room and Pt was given 20mg Geodon in left deltoid and 2mg Ativan in right deltoid. Pt tolerated IM shots well. After the pt had the two IM injections, the pt then came up to the nurses station window and started throwing insults to all the staff including telling head housekeeper to suck my tabatha . Security and staff then escorted the pt to the seclusion room where the pt entered himself and stayed in seclusion with a 1 to 1 sitter for 31 minutes.
--- NOTE | 2022-11-04 07:59 | PC.NURSE ---
Patient was placed in Seclusion at 0659 and was out of seclusion at 0730. See nurse note for details. One hour face to face was completed by this entry writer at 0746 Events leading up to initiation- Verbalizing threat to self or others, demonstrating self-destructive behavior Evaluation of patients immediate situation- Resting in bed, no signs of physical distress, no signs of psychological stress Patient reaction since intervention applied- De-escalation/no displays of violent/destructive behavior Recent Labs viewed- N/A Review of medication- Yes with Dr. Sykes over the phone Patients current medical/behavioral condition- No new concerns since last ROS Need for restraint or seclusion is- No longer present Attending notified- Yes Patient is now resting in bed quietly. No need for one to one observation at this time.
--- NOTE | 2022-11-04 10:18 | PC.NURSE ---
Patient sleeping after Code 10 this morning when morning staff arrived. Patient awoke and then apologized to this RN for his behavior. This RN discussed calming techniques and coping practices to use instead of becoming hostile and making unnecessary statements to other patients and staff. Patient stated, I like that answer, then began walking toward the dayroom to eat breakfast. While walking down the hallway patient acted as if he was going to hit a staff member that was sitting with another patient and flung his fist out. This RN verbally de-escalated the patient and patient sat down and began eating in the dayroom where he eventually fell asleep again. Shortly after the patient got up, walked to his room, and began sleeping again. This RN observed blood on the lower half of the patient's face and his scrubs and offered him a washcloth. Other staff members stated he had a nosebleed earlier and fell asleep. Patient accepted the washcloth, but did not want to wash his face. This RN encouraged that he did and patient walked away.
--- NOTE | 2022-11-04 11:58 | PC.NURSE ---
Patient refused medication (Invega) this morning. This RN attempted to explain the benefits of the medication to the patient, but the patient walked away. This RN then waited awhile and attempted to administer the medication to the patient, but he continued to refuse and stated with a sarcastic tone, I don't have any medicine. He then walked away from the nurses' station while this RN was attempting to explain the benefits of the medication again.
[2022-11-04] MEDS: paliperidone ER 6 mg Tablet PO (12:53)
--- NOTE | 2022-11-04 12:54 | PC.NURSE ---
Patient continued to refuse invega despite multiple members of staff attempting to talk with him to attempt administration. Patient began demanding he talk to the doctor before taking it. Doctor was notified of the refusal and patient request. Doctor stated he talked with the patient about medication multiple times. Patient was then offered the choice between taking his prescribed medication or receiving shots. Staff explained that we did not want to give him injections and would rather him comply, but he stated, you guys can hold me down or strap me down or what the fuck ever. Security was called for standby assistance. After RNs had drawn up the injections patient began making statements like, really? It takes five fucking people to intimidate me? Fucking faggots. Patient then said, I'll just take the fucking pill. You're really gonna make me choose between a pill and shots? Fucking faggots. He made multiple homophobic comments towards a male sitter for another patient. Patient called him a faggot multiple times and stated, why are you here? You're just here to look at me because you think I'm cute. Faggot. He was inappropriate with this RN and made several comments like, you're beautiful. I just want you to look at me because I want to look into your eyes. He also made comments to a member of security that he should get a shirt that said, I'm a faggot. This RN attempted to verbally redirect the patient multiple times. He would leave the nurses' station and walk to the ends of the hallway for a small amount of time, but would return to insult staff and berate them.
[2022-11-04 14:00] VITALS: BP 117/74; PULSE 108; RESP 20; TEMP 37.5; O2SAT 97
--- NOTE | 2022-11-04 14:07 | PC.NURSE ---
Patient rambling on to another patient about a commercial that is playing on tv. He stated, this is a [employer] commercial, but nobody in this commercial gives a shit about the [employer] company. Money is the root of all evil and women are just put here to distract us. Patient then looked at this RN and yelled, aren't they? AREN'T THEY? Patient calmed down and then approached another patient's sitter, who is a male, and stated you're what's it called, not gullible, oh...easy to read. You're a faggot. Patient then began rambling about tenriism and worshiping false idols. When sitter went on break patient said, oh go take a break because I'm breaking you're little brain.
[2022-11-04] MEDS: haloperidol inj 5 mg/mL INJ 1 mL IM (14:33)
[2022-11-04] MEDS: diphenhydrAMINE 50 mg/mL SDV 1mL IM (14:33)
--- NOTE | 2022-11-04 14:33 | PC.NURSE ---
Addendum entered by Lauren Jo RN 11/04/22 14:43: Staff and security did not have to go hands on. Patient tolerated shots well. Original Note: PRN Medication Administration Patient began rambling and berating staff. Patient called the sitter for another patient, who is male, a faggot and continued to question him about his holiness and insult him about what tattoos he assumes he has. This RN attempted to verbally redirect the patient which worked for a few minutes, but then he began insulting the sitter again. Patient then walked up to the nurses' station and asked this nurse, have you ever choked on a hotdog before? This RN answered no to which the patient retorted, well, I bet you've choked on tabatha before. That's the same thing right? This RN then asked the patient to speak appropriately to staff or go to his room. The doctor walked in at this time and the patient started harassing the doctor, asking him to speak to him multiple times and to stop running around. Dr. Prakash was informed of the other behaviors the patient was having and he order this RN to administer ativan 2mg IM (administered in right deltoid), haldol 5mg IM (administered in right deltoid), and benadryl 50mg IM (administered in left deltoid).
--- NOTE | 2022-11-04 15:53 | W.PM.NPUPNS ---
Subjective NPU Subjective: Patient is a 27-year-old white male transferred here admitted with priscila after making threats to his father. The patient continued to appear manic on the milieu. He had spread his blood that had come from a bloody nose to various rooms and required seclusion. He continued to be intense and verbally and emotionally unhinged as he repeatedly targeted patients and staff with nonstop comments while being intrusive and refusing to separate himself from various situations. He had required several as needed medications of Haldol and continued to have periods of unusual behavior including skipping and running on the hallway and targeting staff members with derogatory comments as he stated that he would say these things even if he were not manic. Patient continued to require significant redirection on the milieu. Mental Status Exam MSE Comments: This is a well-nourished, well-developed slender, white male, in hospital scrubs, with adequate grooming and intense eye contact. Abnormal gesturing was appreciated with significant psychomotor agitation. He was confrontational and very guarded and defensive. Speech was increased in rate, normal rhythm and with increased volume. Mood described as awesome.; affect was expansive and labile. Thought process was tangential. Thought content: patient denied any suicidal or homicidal ideation, there were no delusions reported but clear paranoia noted. He appeared to have ideas of infinite power and intelligence. Patient denied any auditory or visual hallucinations and did not appear to be responding to internal stimuli. His recent and remote memory appeared grossly intact. Alert and oriented times person and place but not reason. Insight, judgment and impulse control are impaired. Vitals/I&O/Wt Last Vital Signs Temp 99.5 F 11/04/22 14:00 Pulse 108 H 11/04/22 14:00 Resp 20 H 11/04/22 14:00 BP 117/74 11/04/22 14:00 Pulse Ox 97 11/04/22 14:00 O2 Del Method Room Air 11/03/22 14:00 A&P Assessment and plan (1) Bipolar disorder with psychotic features: (2) Priscila: Plan This is a 27-year-old white male with a reported history of previous bipolar episode at least once who presents in avel priscila with significant movements of limited purpose 1. Monitor for worsening priscila, continued irritability. 2. Encourage individual, group, and milieu therapy. 3. Continue q-15-minute checks for safety. 4. Recommend sober living treatment at the highest level of care to which the patient is willing to commit. 5. Patient is now on a 21-day hold. Invega 6mg daily. Prn Haldol to be given for agitation and aggression. Continue Klonopin at 1mg at night for sleep. Attestations NPU Medical Necessity Statement*: Inpatient hospitalization is medically necessary and the clinically appropriate intervention, at this time. We will monitor medications and make changes as indicated. Likely length of stay is 10-14 days. Coding Level of Care Code Acute Code for Chg Fwd Diagnoses Bipolar disorder with psychotic features F31.9 Priscila F30.9
[2022-11-04 21:38] VITALS: BP 124/77; PULSE 105; RESP 20; TEMP 36.7
--- NOTE | 2022-11-04 23:38 | PC.NURSE ---
Addendum entered by Gideon Leon RN 11/05/22 03:47: Patient intrusive at the nurses station with his ear in the open window places, demanding to know what the staff is talking about, then gets angry when he is told it is none of his business. He told this RN You are stupid Gideon, shut the fuck up . Original Note: Patient woke up, came out of his room & asked this RN to slap the shit out of him . When told that was not going to happen, he started slapping his own face 3-4 times, this RN asked him to stop & attempted to give scheduled medication, patient refused & got hostile stating I'm not taking any fucking medicine, I came out here to have a damn conversation but you are just a dumb, fucking woman, I can't even have a conversation with you . He is now pacing up & down hallway, then stopping & standing a starting intently into the RN station.
[2022-11-05 05:34] VITALS: BP 109/71; PULSE 92; RESP 16; TEMP 36.3
[2022-11-05] MEDS: haloperidol 5 mg Tablet PO (08:29)
[2022-11-05] MEDS: paliperidone ER 6 mg Tablet PO (08:29)
[2022-11-05] MEDS: LORazepam 2 mg Tablet PO (08:29)
[2022-11-05] MEDS: diphenhydrAMINE 50 mg Capsule PO (08:29)
[2022-11-05 12:54] LABS: Hematocrit 39.9 % (42.0-52.0); Hemoglobin 13.6 g/dL (11.7-16.6); Mean Corpuscular HGB Conc 34.1 g/dL (30.0-36.0); Mean Corpuscular Hemoglobin 30.4 pg (28.0-34.0); Mean Corpuscular Volume 89.3 fl (80-94); Mean Platelet Volume 9.6 fL (7.4-10.4); Platelet Count 277 10^3/cmm (130-400); Red Blood Count 4.47 10^6/uL (4.1-5.3); Red Cell Distribution Width 12.5 % (12.1-15.1); White Blood Count 8.9 10^3/uL (4.0-10.0)
[2022-11-05 13:09] LABS: Absolute Eosinophils 0.4 10^3/cmm (0.0-0.7); Absolute Neutrophil 5.9 10^3/cmm (1.4-6.5); Absolute Segmented Neutrophil 5.8 10/cmm (1.6-7.1); Band Neutrophils Absolute 0.1 10^3/cmm (0.0-1.2); Eosinophils 5 %; Giant Platelets Trace; INR 0.97 (0.8-1.2); Lymphocytes 26 %; Lymphocytes Absolute 2.3 10^3/cmm (1.2-3.4); Monocytes Absolute 0.2 10^3/cmm (0.1-0.6); Platelet Estimate Normal (Normal); Segmented Neutrophils 65 %; Smudge Cells Trace; Total Cells Counted 100 (0-100)
[2022-11-05 13:10] LABS: Partial Thromboplastin Time 29.8 SECONDS (23.9-36.7)
--- NOTE | 2022-11-05 13:13 | P.NPUPN_ITS ---
Subjective NPU Subjective: Patient is a 27-year-old white male transferred here admitted with priscila after making threats to his father. The patient continued to require significant redirection. He continued to be provocative on the unit as he had attempted to insult staff and generally attempted to provoke responses from staff as he stated that he would be praying for the program writer of this note and promptly appeared to be engaged in prayer. He appeared repeatedly to ask questions about bizarre in nature asking as the staff if Spider-Man was meant to be with marijuana and continue to report that he was waiting here but was hopeful to go home. He had continued to struggle with sleep. He had minimized any thoughts of being manic and stated that he was just himself. He continued to appear intrusive at times and was from others on the milieu. He had required as needed Haldol last night due to increasingly expansive behavior and inability to manage personal space. Mental Status Exam MSE Comments: This is a well-nourished, well-developed slender, white male, in hospital scrubs, with adequate grooming and intense eye contact. Abnormal gesturing and appeared to be praying and attempting to direct himself toward [place]. He was confrontational and very guarded and defensive. Speech was increased in rate, normal rhythm and with increased volume. Mood described as great. affect was expansive and labile. Thought process was tangential. Thought content: patient denied any suicidal or homicidal ideation, there were no delusions reported but clear paranoia noted. He appeared to have ideas of infinite power and superior intelligence. Patient denied any auditory or visual hallucinations and did not appear to be responding to internal stimuli. His recent and remote memory appeared grossly intact. Alert and oriented times person and place but not reason. Insight, judgment and impulse control are impaired. Vitals/I&O/Wt Last Vital Signs Temp 97.3 F L 11/05/22 05:34 Pulse 92 11/05/22 05:34 Resp 16 11/05/22 05:34 BP 109/71 11/05/22 05:34 Pulse Ox 97 11/04/22 14:00 O2 Del Method Room Air 11/04/22 21:38 Data NPU 11/05/22 12:40 A&P Assessment and plan (1) Bipolar disorder with psychotic features: (2) Priscila: Plan This is a 27-year-old white male with a reported history of previous bipolar episode at least once who presents in avel priscila with significant movements of limited purpose 1. Monitor for worsening priscila, continued irritability. 2. Encourage individual, group, and milieu therapy. 3. Continue q-15-minute checks for safety. 4. Recommend sober living treatment at the highest level of care to which the patient is willing to commit. 5. Patient is now on a 21-day hold. Invega 6mg daily. Prn Haldol to be given for agitation and aggression. Continue Klonopin at 1mg at night for sleep. Attestations NPU Medical Necessity Statement*: Inpatient hospitalization is medically necessary and the clinically appropriate intervention, at this time. We will monitor medications and make changes as indicated. Likely length of stay is 10-14 days. Coding Level of Care Code Acute Code for Chg Fwd Diagnoses Bipolar disorder with psychotic features F31.9 Priscila F30.9
[2022-11-05 14:00] VITALS: BP 114/72; PULSE 115; RESP 16; TEMP 36.7; O2SAT 98
[2022-11-05] MEDS: CLONazepam 1 mg Tablet PO (19:43)
[2022-11-05 20:34] VITALS: BP 119/81; PULSE 125; RESP 18; TEMP 36.7; O2SAT 97
[2022-11-06] MEDS: haloperidol 5 mg Tablet PO ×3 (05:22→20:01)
[2022-11-06] MEDS: diphenhydrAMINE 50 mg Capsule PO ×2 (05:22→10:15)
[2022-11-06] MEDS: LORazepam 2 mg Tablet PO ×2 (05:22→10:15)
--- NOTE | 2022-11-06 05:30 | PC.NURSE ---
Pt up at nurses station, hyperactive. Security was checking on this staff. Pt asked the security checker if he would be his punching bag . Pt kept asking this question multiple times, then asked the nurse the nurse the same question. Nurse informed the pt that he was being inappropriate w/staff at this time. One on one care and redirection not successful. Pt grabbed medication from [facility] and stated he would hold on to it until later, when the physician arrives and tells him to take it. Retrieved medications back from pt. Pt keeps to perseverating on what is a man what is acceptable behavior I am not being rude . Pt con't to be disruptive to other patients, maniacally laughing, and overall not making sense with statement that he is making. Will reapproach at a later time with medications, unless it becomes necessary to give IM medication.
--- NOTE | 2022-11-06 05:40 | PC.NURSE ---
Pt finally took PO medications. Pt continues to perseverate on what is a man . Pt's speech is continuously containing fuck . She told me what a fucking man is . I'm more entertaining, sexy, and funnier than any other men on earth . Here I am God you're fucking creation . Pt is responding to internal stimulation, and is agitated. One on one redirection and care continued to be attempted, with minimal to no effect.
[2022-11-06 05:45] VITALS: BP 125/74; PULSE 104; RESP 18; TEMP 36.4; O2SAT 97
--- NOTE | 2022-11-06 08:51 | PC.NURSE ---
PT CONTINUES TO BE INTRUSIVE AND IRRITABLE TO STAFF. PT CAME UP TO THE NURSES STATION AND ASKED STAFF WHAT THEY BELIEVED HOPE WAS, IF THE PT DID NOT RECEIVE THE ANSWER HE LIKED HE STATED YOU ARE NOT HUMAN ONLY HUMANS KNOW WHAT HOPE IS. THEN PT CONTINUED TO STATE ABHISHEK I HOPE YOU LEARN WHAT HOPE IS SO YOU CAN STOP BEING A BITCH, YOU TOO NABIL I HOPE YOU CAN STOP BEING A BITCH. PT DID NOT RECEIVE REPLY TO THIS STATEMENT THEN CONTINUED TO CALL STAFF A DELUSION . PT THEN WALKED OFF.
[2022-11-06] MEDS: paliperidone ER 6 mg Tablet PO (10:15)
[2022-11-06 14:00] VITALS: BP 111/63; PULSE 109; RESP 16; TEMP 37; O2SAT 99
--- NOTE | 2022-11-06 14:01 | W.PM.NPUPNS ---
Subjective NPU Subjective: While calling herPatient is a 27-year-old white male transferred here admitted with priscila after making threats to his father. The patient had apparently had decline in functioning for a few weeks prior to admission here. He continued to remain grandiose and provocative on the unit. He often made vague threats to staff and insulted them verbally without provocation. He had refused his oral Invega and had been given Haldol this morning. He had continued to require IM Haldol for agitation. He continued to remain intrusive and continued to struggle with sleep continuity disruption with limited amount of hours of sleep reported by staff. He had continued to engage in bizarre behavior on the unit with the patient praying and singing loudly in the halls. He had been noted to have had a difficult conversation with his mother which he had apparently used profane language and calling her mother a pejorative name. Mental Status Exam MSE Comments: This is a well-nourished, well-developed slender, white male, in hospital scrubs, with adequate grooming and intense eye contact. Bizarre hand movements noted. He was confrontational and very guarded and defensive. Speech was increased in rate, normal rhythm and with increased volume. Mood described as great. affect was expansive and labile. Thought process was tangential. Thought content: patient denied any suicidal or homicidal ideation, there were no delusions reported but clear paranoia noted. He appeared to have ideas of infinite power and superior intelligence. Patient denied any auditory or visual hallucinations and did not appear to be responding to internal stimuli. His recent and remote memory appeared grossly intact. Alert and oriented times person and place but not reason. Insight, judgment and impulse control are impaired. Vitals/I&O/Wt Last Vital Signs Temp 97.5 F L 11/06/22 05:45 Pulse 104 H 11/06/22 05:45 Resp 18 11/06/22 05:45 BP 125/74 11/06/22 05:45 Pulse Ox 97 11/06/22 05:45 O2 Del Method Room Air 11/06/22 05:45 Weight last 48 hrs Weight 77.383 kg Data NPU 11/05/22 12:40 A&P Assessment and plan (1) Bipolar disorder with psychotic features: (2) Priscila: Plan This is a 27-year-old white male with a reported history of previous bipolar episode at least once who presents in avel priscila with significant movements of limited purpose 1. Monitor for worsening priscila, continued irritability. 2. Encourage individual, group, and milieu therapy. 3. Continue q-15-minute checks for safety. 4. Recommend sober living treatment at the highest level of care to which the patient is willing to commit. 5. Patient is now on a 21-day hold. Invega 6mg daily. Routine haldol started at 5mg twice a day. Continue Klonopin at 1mg at night for sleep. Attestations NPU Medical Necessity Statement*: Inpatient hospitalization is medically necessary and the clinically appropriate intervention, at this time. We will monitor medications and make changes as indicated. Likely length of stay is 10-14 days. Coding Level of Care Code Acute Code for Chg Fwd Diagnoses Bipolar disorder with psychotic features F31.9 Priscila F30.9
--- NOTE | 2022-11-06 15:27 | PC.NURSE ---
PT IS CURRENTLY AT THE NURSES STATION JUST STARING AT STAFF. PT ASKED IF THERE WAS ANYTHING HE NEEDED AND RECEIVED A FRUIT PUNCH DRINK WHEN ASKED. PT THEN STATED THAT WAS ALL HE NEEDED. PT CONTINUES TO STAND AT NURSES STATION. IN AN ATTEMPT TO REDIRECT NURSE ASKED IF PT KNEW HOW TO DO A RUBIX CUBE, NURSE WAS GOING TO OFFER ONE FOR ENTERTAINMENT. PT STATES NO, WHY THE FUCK DOES THAT MATTER TO YOU? NURSE STATED I WAS GOING TO OFFER IT TO YOU FOR ENTERTAINMENT. PT THEN REPLIED WHY THE FUCK WOULD I WANT ONE? WHY THE FUCK WOULD I CARE. NURSE THEN STATED I DID NOT KNOW, SOME PEOPLE ENJOY THEM. TO WHICH PT REPLIED WELL IM NOT A PERSON WILL CONTINUE TO MONITOR PT.
[2022-11-06] MEDS: benztropine 1 mg Tablet PO (20:01)
[2022-11-06] MEDS: CLONazepam 1 mg Tablet PO (20:01)
[2022-11-06 21:01] VITALS: BP 112/81; PULSE 88; RESP 18; TEMP 36.2; O2SAT 98
[2022-11-07 06:00] VITALS: BP 109/74; PULSE 89; RESP 18; TEMP 36.5; O2SAT 97
[2022-11-07] MEDS: haloperidol 5 mg Tablet PO ×2 (08:05→20:02)
[2022-11-07] MEDS: benztropine 1 mg Tablet PO ×2 (08:05→20:02)
[2022-11-07] MEDS: paliperidone ER 6 mg Tablet PO (08:05)
[2022-11-07 13:16] VITALS: BP 120/76; PULSE 100; RESP 17; TEMP 36.9; O2SAT 97
[2022-11-07] MEDS: LORazepam 2 mg Tablet PO (16:00)
--- NOTE | 2022-11-07 16:10 | PC.NURSE ---
Patient making inappropriate statements to male social insurance analyst. tin recovery worker requested the patient talk appropriately to which the patient responded, you don't even know what the word appropriate means. You are just trying to manipulate people with your ocean eyes, and then became very manic, talking quickly and without much purpose. Patient was verbally redirected. He also began asking an ATTENDANT SALES if she knew why his nose was bleeding in a mocking tone. When she said she was unsure of the exact reason he said, oh, ya, sure. Why did you throw away that rock the other day? What was the point? You don't even care. Patient then looked at this RN and asked, what are you gonna give me meds now? Are you supposed to give me meds? This RN informed patient that he did not have any due at this time, but if he was feeling agitated or anxious he might want to get ahead of that feeling and take a medication as needed for that. Patient laughed maniacally and said, ya you should probably give me something. Lorazepam 2mg PO was administered by this RN.
--- NOTE | 2022-11-07 17:38 | P.NPUPN_ITS ---
Subjective NPU Subjective: Patient is a 27-year-old white male transferred here admitted with priscila after making threats to his father. Patient continued to have periods of volatile behavior. He had been more compliant with his oral medication. He had reported that his priscila was getting better. He continued to engage in some bizarre rituals including dropping on his knees) and continued to appear overly intrusi ve and relatively unfiltered in regards to communication with members of the opposite sex. He continued to struggle with sleep continuity disruption while sleeping only 3 to 4 hours. He had responded well to additional Haldol at this time in addition to the Invega 6 mg daily. Mental Status Exam MSE Comments: This is a well-nourished, well-developed slender, white male, in hospital scrubs, with adequate grooming and intense eye contact. Bizarre hand movements noted. He was friendly and evaluated today. Speech was increased in rate, normal rhythm and with normal volume. Mood described as good.. affect was expansive and euphoric. Thought process was tangential. Thought content: p atient denied any suicidal or homicidal ideation, there were no delusions reported but clear paranoia noted. He continued to show evidence of grandiosity and clear ideas of reference. Patient denied any auditory or visual hallucinations and did not appear to be responding to internal stimuli. His recent and remote memory appeared grossly intact. Alert and oriented times person and place but not reason. Insight remained poor. His judgment and impulse control are impaired. Vitals/I&O/Wt Last Vital Signs Temp 98.4 F 11/07/22 13:16 Pulse 100 11/07/22 13:16 Resp 17 11/07/22 13:16 BP 120/76 11/07/22 13:16 Pulse Ox 97 11/07/22 13:16 O2 Del Method Room Air 11/06/22 14:00 Weight last 48 hrs Weight 77.383 kg Data NPU 11/05/22 12:40 A&P Assessment and plan (1) Bipolar disorder with psychotic features: (2) Priscila: Plan This is a 27-year-old white male with a reported history of previous bipolar episode at least once who presents in avel priscila with significant movements of limited purpose 1. Monitor for worsening priscila, continued irritability. 2. Encourage individual, group, and milieu therapy. 3. Continue q-15-minute checks for safety. 4. Recommend sober living treatment at the highest level of care to which the patient is willing to commit. 5. Patient is now on a 21-day hold. Invega 6mg daily and Haldol 5mg bid. Continue Klonopin at 1mg at night for sleep. Attestations NPU Medical Necessity Statement*: Inpatient hospitalization is medically necessary and the clinically appropriate intervention, at this time. We will monitor medications and make changes as indicated. Likely length of stay is 10-14 days. Coding Level of Care Code Acute Code for Chg Fwd Diagnoses Bipolar disorder with psychotic features F31.9 Priscila F30.9
[2022-11-07] MEDS: nicotine 2 mg Gum BUCCAL (18:16)
[2022-11-07] MEDS: CLONazepam 1 mg Tablet PO (20:02)
[2022-11-07 21:05] VITALS: BP 117/78; PULSE 88; RESP 18; TEMP 36.8; O2SAT 97
--- NOTE | 2022-11-08 02:52 | PC.NURSE ---
Pt at nurses station perseverating about You can hear my thoughts You could hear my thoughts, until they took them away all time and space and reality is the same no matter I go You can describe me as dab . Pts thought pattern is chaotic and illogical at this time. Continues to deny the need for food or drink, or anything that this nurse can do for him.
--- NOTE | 2022-11-08 05:33 | PC.NURSE ---
Pt awake and at nurses station, agitated. Perseverating statements at this time is What sound do you make , why do blue eyed people understand me but brown eyed people don't I'm going to yell and wake everybody up Pt began laughing manically and yelling at other pt's.
[2022-11-08] MEDS: ziprasidone hcl 20 mg Capsule PO (05:40)
[2022-11-08] MEDS: LORazepam 2 mg Tablet PO (05:40)
--- NOTE | 2022-11-08 05:41 | PC.NURSE ---
Pt remains extremely agitated and continues to yell across nurses station. Pt con't to call this nurse a faggot , my life is the story you all are dumb I'm not making sense on purpose. Pt has woke the other pts on the whaley by screaming into their rooms. I talked w/the doctor and he doesn't know anything, all we talked about was the cold war , your creator lied to you I'm rude to you, I know I'll feel sorry about it later . Security was called to assist w/redirecting pt. Pt did take PRN Geodon and Ativan. One on one redirection was unhelpful from nursing staff.
[2022-11-08 06:00] VITALS: BP 113/72; PULSE 102; RESP 18; TEMP 36.7; O2SAT 96
[2022-11-08] MEDS: haloperidol inj 5 mg/mL INJ 1 mL 10 MG IM (06:29)
[2022-11-08] MEDS: diphenhydrAMINE 50 mg/mL SDV 1mL IM (06:29)
--- NOTE | 2022-11-08 06:39 | PC.NURSE ---
Pt remains highly animated, perseverating on calling staff faggots and bitches . IM Benadryl administered to left deltoid and IM Haldol administered to right deltoid. Security and extra staff at side. Pt took injections w/o problems. Pt had to be escorted away from another pt, who he scared and made cry. Pt is now ambulating in the whaley way stating thanks for giving me the shots of medicine I never knew I needed , I'm getting sleepy now, thank you . Pt has returned to the dayroom to watch t.v. at this time.
--- NOTE | 2022-11-08 07:55 | PC.NURSE ---
SPOKE WITH PHYSICIAN THIS MORNING ON THIS PT CARE. PHYSICIAN WANTED MORNING DOSE OF HALDO AND COGENTIN HELD DUE TO RECEIVING AND IM DOSE EARLY THIS MORNING.
--- NOTE | 2022-11-08 11:44 | PC.NURSE ---
Pt is making verbal threats to a pt across the glass through the nurses station. Pt stated I will beat your fucking ass .
[2022-11-08] MEDS: haloperidol 5 mg Tablet PO ×2 (11:55→16:52)
[2022-11-08] MEDS: benztropine 1 mg Tablet PO ×3 (11:58→20:35)
--- NOTE | 2022-11-08 12:00 | PC.NURSE ---
PT BEING VERBALLY AGGRESSIVE TOWARDS STAFF AND OTHER PT. PT DIFFICULT TO REDIRECT. PHYSCIAN NOTIFIED AND ORDERED 5MG OF HALDOL ND 1 MG OF COGENTIN. PT TOOK THE ORAL MEDICATIONS STATING I WILL TAKE WHATEVER YOU BRING TO ME ABHISHEK. I WILL TAKE WHATEVER YOU BRING TO ME. THIS NURSE THANKED PT FOR TAKING THE MEDICATIONS. PT SHOWED NURSE THAT HE HAD INDEED SWALLOWED THE PILLS AND THEN STATED. IM GLAD YOU ARE IN REALITY TODAY ABHISHEK, BUT WE ARE ALSO IN THE TV SHOW. STAY IN THE SHOW ABHISHEK STAY ALIVE.
--- NOTE | 2022-11-08 13:20 | W.PM.BREST ---
Face to Face: Restrn/Seclusion Events leading up to initiation: Verbalizing threat to self or others Evaluation of patient's immediate situation: Alert and oriented and No signs of physical distress Patient reaction since intervention applied: Behaviors/threats have lessened, but still present Recent labs reviewed: No Review of medications: Yes Patient's current medical/behavioral condition: No new concerns since last ROS Need for restraint or seclusion is: No longer present Attending notified: Attending completed assessment
[2022-11-08 14:00] VITALS: BP 129/85; PULSE 104; RESP 18; TEMP 37.6; O2SAT 96
--- NOTE | 2022-11-08 15:36 | P.NPUPN_ITS ---
Subjective NPU Subjective: Patient is a 27-year-old white male transferred here admitted with priscila after making threats to his father. The patient had required seclusion. He had difficulties with sleep. He had woken up in the morning and appeared intrusive earlier than 6 AM going into others' rooms. He continued to require redirection as he had been verbally abusive and continued to test limits. He had reported feeling like a God. He had repeatedly expressed his amorous intentions towards various staff stating that he loved them while 2 hours later verbally abusing them. He had continued to minimize having any particular problems associated with sleep. He had continue to test limits and refuse oral medications and received intramuscular Haldol throughout the day. Mental Status Exam MSE Comments: This is a well-nourished, well-developed slender, white male, in hospital scrubs, with adequate grooming and intense eye contact. Bizarre gestures noted including praying. He was guarded and hostile and evaluated today. Speech was increased in rate, with elevated volume. Mood described as great. Affect was expansive and agitated. Thought process was tangential. Thought content: patient denied any suicidal or homicidal ideation, there were no delusions reported but clear paranoia noted. He continued to show evidence of grandiosity and clear ideas of reference. He did at times appear to be responding to internal stimuli but denied on interview. His recent and remote memory appeared grossly intact. Alert and oriented times person and place but not reason. Insight remained poor. His judgment and impulse control are impaired. Vitals/I&O/Wt Last Vital Signs Temp 99.7 F H 11/08/22 14:00 Pulse 104 H 11/08/22 14:00 Resp 18 11/08/22 14:00 BP 129/85 11/08/22 14:00 Pulse Ox 96 11/08/22 14:00 O2 Del Method Room Air 11/08/22 14:00 Data NPU 11/05/22 12:40 A&P Assessment and plan (1) Bipolar disorder with psychotic features: (2) Priscila: Plan This is a 27-year-old white male with a reported history of previous bipolar episode at least once who presents in avel priscila with significant movements of limited purpose 1. Monitor for worsening priscila, continued irritability. 2. Encourage individual, group, and milieu therapy. 3. Continue q-15-minute checks for safety. 4. Recommend sober living treatment at the highest level of care to which the patient is willing to commit. 5. Patient is now on a 21-day hold. Increase Invega 9mg daily and increase haldol 5mg in am, 10mg at night Continue Klonopin at 2mg at night for sleep. Attestations NPU Medical Necessity Statement*: Inpatient hospitalization is medically necessary and the clinically appropriate intervention, at this time. He continues to have challenging behaviors. We will monitor medications and make changes as indicated. Likely length of stay is 10- 14 days. Coding Level of Care Code Acute Code for Chg Fwd Diagnoses Bipolar disorder with psychotic features F31.9 Priscila F30.9
[2022-11-08] MEDS: CLONazepam 1 mg Tablet 2 MG PO (20:14)
[2022-11-08] MEDS: paliperidone ER 9 mg Tablet PO (20:14)
[2022-11-08] MEDS: haloperidol 5 mg Tablet 10 MG PO (20:14)
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
--- NOTE | 2022-11-08 21:03 | PC.NURSE ---
Pt is calmer now, thought process and speech at regular rate and tone. Pt came to nurses station to get toothbrush and tooth paste to brush his teeth prior to bed. It was noted by pt that both sinks in his room area are not turning on at this time. Security putting in work order for maintenance to replace batteries for motion sensors. Close monitoring continues.
[2022-11-08 21:22] VITALS: BP 127/82; PULSE 91; RESP 22; TEMP 36.6; O2SAT 96
--- NOTE | 2022-11-09 03:14 | PC.NURSE ---
Addendum entered by Anya Terry RN 11/09/22 03:18: pt also stated that when he saw Dr. Prkaash he would scream in his face and make every one of his 21 days here as miserable as possible. Original Note: Pt came up to nurses station stating, why the fuck is she up and why does she smell like shit? Asked the pt why he was up, and he stated I've been asleep for at least 6-7 hrs . This nurse confronted the pt stating he was not asleep all that long and he became agitated telling this nurse to shut the fuck up, and don't talk to me about my sleep . Pt con't to ambulate in hallway. Close monitoring continues.
[2022-11-09 06:00] VITALS: BP 114/78; PULSE 107; RESP 18; TEMP 36.6; O2SAT 95
[2022-11-09] MEDS: haloperidol 5 mg Tablet PO ×2 (07:39→17:41)
[2022-11-09] MEDS: benztropine 1 mg Tablet PO ×2 (07:39→20:23)
--- NOTE | 2022-11-09 08:09 | PC.NURSE ---
Patient was intrusive going in to other patients rooms and yelling at staff calling people lo . Placed in seclusion at 0747. While in seclusion he looked at this rfp writer and said I want to spray something in your face but you probably wont like it. Face to face eval completed at 0800. Events leading up to initiation: Verbalizing threat to self or others Evaluation of patients immediate situation: Alert and oriented, no signs of physical distress, no signs of psychological distress Patient reaction since intervention applied: continued attempts/displays harmful behavior Recent labs reviewed: No Review of meds: Yes, over the phone with Dr. Sykes Patients current medical/behavioral condition: No new concerns since last ROS Need for restraint or seclusion: Continued Attending notified: Yes
[2022-11-09] MEDS: ziprasidone 20 mg/mL SDV 40 MG IM (12:18)
[2022-11-09] MEDS: water for injection-sterile 10 ML (12:22)
[2022-11-09 14:00] VITALS: RESP 16
--- NOTE | 2022-11-09 15:33 | PC.NURSE ---
AT AROUND 1145 PT RECEIVED 40MG OF IM GEODON VIA DOCTORS ORDER. PT DID REQUIRE A MANUAL HOLD TO ADMINISTER MEDICATION.
--- NOTE | 2022-11-09 16:21 | PC.NURSE ---
PT REQUESTED TO KNOW MORE INFORMATION ABOUT GEODON. PT REFUSED TO LISTEN TO THIS NURSE TALK ABOUT THE MEDICATION. PT REQUESTED FOR THE SITTER TO LOOK UP INFORMATION ABOUT THE MEDICATION, THIS PROMPTED TO PRINT INFORMATION ABOUT THE MEDICATION FOR THE PT. THIS WAS GIVEN TO THE PT AND THE PT THREW THESE PAPERS BACK INTO THE NURSES STATION.
--- NOTE | 2022-11-09 16:35 | PC.NURSE ---
PT REFUSED VITALS. RESPIRATIONS WERE OBTAINED AT 16. WILL CONTINUE TO MONITOR.
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
[2022-11-09] MEDS: paliperidone ER 9 mg Tablet PO (20:23)
[2022-11-09] MEDS: CLONazepam 1 mg Tablet 2 MG PO (20:24)
[2022-11-09] MEDS: haloperidol 5 mg Tablet 10 MG PO (20:24)
[2022-11-09 21:22] VITALS: BP 125/91; PULSE 128; RESP 20; TEMP 36.5; O2SAT 97
[2022-11-09] MEDS: trazodone 50 mg Tablet PO (22:45)
[2022-11-10 06:00] VITALS: RESP 16
[2022-11-10] MEDS: haloperidol 5 mg Tablet PO ×3 (08:18→18:46)
[2022-11-10] MEDS: benztropine 1 mg Tablet PO ×3 (08:18→20:20)
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
[2022-11-10] MEDS: ziprasidone hcl 40 mg Capsule PO (10:45)
[2022-11-10] MEDS: CLONazepam 1 mg Tablet 2 MG PO ×2 (10:45→20:20)
--- NOTE | 2022-11-10 12:36 | PC.NURSE ---
Patient constantly intruding on staff and patients' space. Patient verbally redirected. A nurse was drinking a Mountain Dew when he looked at her and said, oh you've got a Mountain Dew. Who do you want to mount and do you? Maybe I could be the mountain. Patient, again, was verbally redirected. He continues to attempt to antagonize the sitter by stepping very close to him and asking if it is too close. Patient has been reminded several times that he needs to be a little bit farther than arms length away from the sitter.
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
[2022-11-10 14:00] VITALS: BP 141/93; PULSE 106; RESP 18; TEMP 36.7; O2SAT 95
--- NOTE | 2022-11-10 14:35 | PC.NURSE ---
Patient met with physician and became extremely agitated. When the physician left his room to go meet with another patient, he became very angry and walked quickly up to the physician and began saying he was fine and that the physician was threatening him by saying he needed to stay here longer. Patient also called the sitters retards and said staff was being niggers to each other. He also mentioned to the sitters that they could suck the doctors tabatha if you want. RN suggested he change his language and be respectful. He continued to use inappropriate language.
[2022-11-10] MEDS: diphenhydrAMINE 50 mg Capsule PO ×2 (15:04→18:46)
[2022-11-10] MEDS: LORazepam 2 mg Tablet PO ×2 (15:04→18:46)
--- NOTE | 2022-11-10 15:45 | PC.NURSE ---
Pt is still at the nurses station with pressured speech, pt is insulting the sitter's and also other pt's on the floor. Pt has been observed wandering just in the doorway of another pt's room, pt has no awareness of one's personal space. Pt is using profanity when speaking to everyone. Pt was encouraged by staff to please be quite and keep his thought's to himself.
--- NOTE | 2022-11-10 15:53 | P.NPUPN_ITS ---
Subjective NPU Subjective: Patient presents today with significant distress. He is antagonizing other patients talking nonstop to staff talking to people who are talking to him and being managed on one-to-one. He like to talk about discharge and we talked about the necessary behavior pattern that is needed for him to leave prior to the end of his 21-day hold. He was angry, intrusive and unable to really except the conversation at baseline. More at this credit underwriter speaks and and all kinds of demonstrative behavior. Mental Status Exam MSE Comments: This is a well-nourished, well-developed slender, white male, in hospital scrubs, with adequate grooming and intense eye contact. Bizarre gestures noted including praying. He remained guarded and hostile on interview. Speech was increased in rate, with elevated volume. Mood described as great. Affect was irritable and labile. Thought process was tangential. Thought content: patient denied any suicidal or homicidal ideation, there were no delusions reported but clear paranoia noted. He continued to show evidence of grandiosity and clear ideas of reference. He did at times appear to be responding to internal stimuli but denied on interview. He continued to have strong beliefs of infinite power and intelligence. His recent and remote memory appeared grossly intact. Alert and oriented times person and place but not reason. Insight remained poor. His judgment and impulse control are impaired. Vitals/I&O/Wt Last Vital Signs Temp 98.0 F 11/10/22 14:00 Pulse 106 H 11/10/22 14:00 Resp 18 11/10/22 14:00 BP 141/93 11/10/22 14:00 Pulse Ox 95 11/10/22 14:00 O2 Del Method Room Air 11/09/22 21:22 Data NPU 11/05/22 12:40 A&P Assessment and plan (1) Bipolar disorder with psychotic features: (2) Priscila: Plan This is a 27-year-old white male with a reported history of previous bipolar episode at least once who presents in avel priscila with significant movements of limited purpose 1. Monitor for worsening priscila, continued irritability. 2. Encourage individual, group, and milieu therapy. 3. Continue q-15-minute checks for safety. 4. Recommend sober living treatment at the highest level of care to which the patient is willing to commit. 5. Patient is now on a 21-day hold. Increase Invega 9mg daily and Continue haldol 5mg in am, 10mg at night Continue Klonopin at 2mg at night for sleep. Prn Zyprexa 10mg for agitation not to exceed 30mg/24 hours. Attestations NPU Medical Necessity Statement*: Inpatient hospitalization is medically necessary and the clinically appropriate intervention, at this time. He continues to have challenging behaviors. We will monitor medications and make changes as indicated. Likely length of stay is 10- 14 days. Coding Level of Care Code Acute Code for g Fwd Diagnoses Bipolar disorder with psychotic features F31.9 Priscila F30.9
[2022-11-10] MEDS: haloperidol 5 mg Tablet 10 MG PO (20:19)
[2022-11-10] MEDS: trazodone 50 mg Tablet PO (20:19)
[2022-11-10] MEDS: paliperidone ER 9 mg Tablet PO (20:19)
--- NOTE | 2022-11-10 23:27 | PC.NURSE ---
Patient at the nurses station arguing with staff and sitter, name calling. Patient was belittling to staff and was taken outside to discuss assessment. Patient was very delusional, stating he have perfomred and seen miracles. Patient speaks of Revelations and how he is able to see both good and evil and it is hard for him to be the only one in the world that can do this. Security was called as patient was not redirectable. The sitter was changed out and FRUIT AND VEGETABLE CLASSER was asked to not engage in the conversation. Patient did take his nightly medication including PRNs. Patient was asked to stay in his room until medication became effective. Wade laid down and has been asleep since.Remains on 1:1
[2022-11-11 06:00] VITALS: BP 104/71; PULSE 81; RESP 15; O2SAT 97
[2022-11-11] MEDS: benztropine 1 mg Tablet PO (08:25)
[2022-11-11] MEDS: haloperidol 5 mg Tablet PO (08:25)
--- NOTE | 2022-11-11 08:58 | PC.NURSE ---
Patient refusing to answer questions. When asked, do you felt like hurting yourself or others? patient responded, who is you? This RN then responded, you, to which he replied sarcastically, oh you? You're me? Patient has been making rude comments this morning. He stated, all of you are daughters of bitches. He also asked multiple staff if we knew what a certain kind of chemical was to which we all responded no. He then said, you're all fucking stupid. If you're a nurse why do you not know that it's a chemical in a mushroom?
--- NOTE | 2022-11-11 10:25 | P.NPUPN_ITS ---
Subjective NPU Subjective: Patient presents today with continued significant distress. He is antagonizing other patients talking nonstop to staff talking to people who are talking to him and being managed on one-to-one. He was agressive to staff leading to another seclusion and is continuing to get prn medication. He was angry, intrusive and unable to really except the conversation at baseline. Spends much of the day making tangential running commentary on his interactions with all contacts. Mental Status Exam MSE Comments: This is a well-nourished, well-developed slender, white male, in hospital scrubs, with adequate grooming and intense eye contact. Bizarre gestures noted including praying. He remained guarded and hostile on interview. Speech was increased in rate, with elevated volume. Mood described as great. Affect was irritable and labile. Thought process was tangential. Thought content: patient denied any suicidal or homicidal ideation, there were no delusions reported but clear paranoia noted. He continued to show evidence of grandiosity and clear ideas of reference. He did at times appear to be responding to internal stimuli but denied on interview. He continued to have strong beliefs of infinite power and intelligence. His recent and remote memory appeared grossly intact. Alert and oriented times person and place but not reason. Insight remained poor. His judgment and impulse control are impaired. Vitals/I&O/Wt Last Vital Signs Temp 98.0 F 11/10/22 14:00 Pulse 81 11/11/22 06:00 Resp 15 11/11/22 06:00 BP 104/71 11/11/22 06:00 Pulse Ox 97 11/11/22 06:00 O2 Del Method Room Air 11/11/22 06:00 Data NPU 11/05/22 12:40 A&P Assessment and plan (1) Bipolar disorder with psychotic features: (2) Priscila: Plan This is a 27-year-old white male with a reported history of previous bipolar episode at least once who presents in avel priscila with significant movements of limited purpose 1. Monitor for worsening priscila, continued irritability. 2. Encourage individual, group, and milieu therapy. 3. Continue 1 to 1 for safety. 4. Recommend sober living treatment at the highest level of care to which the patient is willing to commit. 5. Patient is now on a 21-day hold. Increase Invega 9mg daily and Continue haldol 5mg in am, 10mg at night increased Klonopin to 2mg po bid. Prn Haldol 10mg for agitation not to exceed 30mg/24 hours. Attestations NPU Medical Necessity Statement*: Inpatient hospitalization is medically necessary and the clinically appropriate intervention, at this time. He continues to have challenging behaviors. We will monitor medications and make changes as indicated. Likely length of stay is 10- 14 days. Coding Level of Care Code Acute Code for g Fwd Diagnoses Bipolar disorder with psychotic features F31.9 Priscila F30.9
[2022-11-11] MEDS: ziprasidone 20 mg/mL SDV (10:32)
[2022-11-11] MEDS: CLONazepam 1 mg Tablet 2 MG PO ×2 (10:34→17:34)
[2022-11-11] MEDS: water for injection-sterile 10 ML (10:34)
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
--- NOTE | 2022-11-11 11:00 | W.PM.BREST ---
Face to Face: Restrn/Seclusion Events leading up to initiation: Verbalizing threat to self or others and Combative/Striking out at staff or others Evaluation of patient's immediate situation: Alert and oriented, Signs of physical distress and Signs of psychological distress Patient reaction since intervention applied: Behaviors/threats have lessened, but still present Recent labs reviewed: Yes Review of medications: Yes Patient's current medical/behavioral condition: No new concerns since last ROS Need for restraint or seclusion is: Continued Attending notified: Attending completed assessment
--- NOTE | 2022-11-11 11:37 | PC.NURSE ---
dc'd seclusion isolation pt let out to use the restroom at that time pt appeared to be very tired staff asked him if he would like to lay down in his own bed he stated yes went into room and layed down.
[2022-11-11 14:00] VITALS: RESP 16
[2022-11-11] MEDS: diphenhydrAMINE 50 mg/mL SDV 1mL IM (17:57)
[2022-11-11] MEDS: LORazepam 2 mg/mL INJ 1 mL IM (17:57)
[2022-11-11] MEDS: haloperidol inj 5 mg/mL INJ 1 mL IM (17:57)
--- NOTE | 2022-11-11 17:59 | PC.NURSE ---
administered prn benadryl 50mg in left deltoid. pt compliant on injection administration.
[2022-11-11 21:08] VITALS: RESP 16
[2022-11-12] MEDS: haloperidol 5 mg Tablet 10 MG PO ×2 (01:51→20:08)
[2022-11-12] MEDS: benztropine 1 mg Tablet PO ×3 (01:51→20:07)
[2022-11-12] MEDS: paliperidone ER 9 mg Tablet PO ×2 (01:51→20:08)
--- NOTE | 2022-11-12 01:53 | PC.NURSE ---
patient awake and walking with security to the dayroom. Took 2100 meds late as he was sedated prior to and was not waking him because of his previous behavior. Patient took medication stating its stupid because he wasn't paying for them.
[2022-11-12] MEDS: haloperidol 5 mg Tablet PO ×2 (05:32→09:29)
[2022-11-12] MEDS: CLONazepam 1 mg Tablet 2 MG PO ×3 (05:32→18:37)
[2022-11-12 06:00] VITALS: BP 115/82; PULSE 93; RESP 18; O2SAT 98
[2022-11-12] MEDS: ziprasidone 20 mg/mL SDV IM (08:59)
[2022-11-12] MEDS: water for injection-sterile 10 ML (08:59)
--- NOTE | 2022-11-12 09:50 | W.PM.BREST ---
Face to Face: Restrn/Seclusion Events leading up to initiation: Verbalizing threat to self or others and Combative/Striking out at staff or others Evaluation of patient's immediate situation: Alert and oriented and Signs of psychological distress Patient reaction since intervention applied: Behaviors/threats have lessened, but still present Recent labs reviewed: No Review of medications: Yes Patient's current medical/behavioral condition: No new concerns since last ROS Need for restraint or seclusion is: Continued Attending notified: Attending completed assessment
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
--- NOTE | 2022-11-12 11:08 | PC.NURSE ---
Patient continues to be in seclusion as he is not appropriate to be released at this time, as voiced by all staff and the doctor. Patient told this RN again, I'm going to imagine you with your clothes off and I guess that makes me an asshole. Also called sitter a faggot and stupid for wearing a mask again. The patient's mother had called and asked how he was doing and if they could visit with him tomorrow. When this RN told this patient his parents would like to see him tomorrow and asked if he would be okay with that he stated, I don't give a fuck. I'd like to get things clear with them. They'll probably just fucking lie to you about me.
--- NOTE | 2022-11-12 11:53 | P.NPUPN_ITS ---
Subjective NPU Subjective: Patient presented today seeming to finally be less agitated. He was placed in seclusion earlier in the day. He continued to have irritability and negative comments and challenging statements about his behavior and how it would be once he was released from seclusion. Eventually he was apologetic and reporting that he would not get anyone's personal space and seemed to be somewhat less tr iggered after that. He denied any specific problems or side effects to the medications. Mental Status Exam MSE Comments: This is a well-nourished, well-developed slender, white male, in hospital scrubs , with adequate grooming and intense eye contact. Bizarre gestures noted including praying. He remained guarded and hostile on interview. Speech was increased in rate, with elevated volume. Mood described as okay. Affect was less irritable and labile than earlier in the day. Thought process was tangential. Thought content: patient denied any suicidal or homicidal ideation, there were no delusions reported but clear paranoia noted. He continued to show evidence of grandiosity and clear ideas of reference. He did at times appear to be responding to internal stimuli but denied on interview. He continued to have strong beliefs of infinite power and intelligence. His recent and remote memory appeared grossly intact. Alert and oriented times person and place but not reason. Insight remained poor. His judgment and impulse control are impaired. Vitals/I&O/Wt Last Vital Signs Temp 98.0 F 11/10/22 14:00 Pulse 93 11/12/22 06:00 Resp 18 11/12/22 06:00 BP 115/82 11/12/22 06:00 Pulse Ox 98 11/12/22 06:00 O2 Del Method Room Air 11/12/22 06:00 Data NPU 11/05/22 12:40 A&P Assessment and plan (1) Bipolar disorder with psychotic features: (2) Priscila: Plan This is a 27-year-old white male with a reported history of previous bipolar episode at least once who presents in avel priscila with significant movements of limited purpose 1. Monitor for worsening priscila, continued irritability. 2. Encourage individual, group, and milieu therapy. 3. Continue 1 to 1 for safety. 4. Recommend sober living treatment at the highest level of care to which the patient is willing to commit. 5. Patient is now on a 21-day hold. Increase Invega 9mg daily and Continue haldol 5mg in am, 10mg at night increased Klonopin to 2mg po bid. Prn Haldol 10mg for agitation not to exceed 30mg/24 hours. Attestations NPU Medical Necessity Statement*: Inpatient hospitalization is medically necessary and the clinically appropriate intervention, at this time. He continues to have challenging behaviors. We will monitor medications and make changes as indicated. Likely length of stay is 10- 14 days. Coding Level of Care Code Acute Code for [facility] Fwd Diagnoses Bipolar disorder with psychotic features F31.9 Priscila F30.9
--- NOTE | 2022-11-12 12:24 | PC.NURSE ---
Patient continues to be in seclusion as he is not appropriate to be released at this time, as voiced by all staff and the doctor. He has stated several times that his sitter is a faggot because he doesn't have a wedding ring on. He requested he be let out of seclusion and that he would be nice because that's all you guys want. This RN told him that we would love him to be respectful and that we knew he was really a nice jose, to which he replied, ya, right. You guys just piss me off. If I do start being rude or aggressive again you guys can just throw me in here again and give me whatever meds you want. As soon as this RN walked away to discuss the seclusion with the doctor the patient began insulting the sitter again.
--- NOTE | 2022-11-12 13:50 | PC.NURSE ---
at [phone] while doing one on one sitting on pt in isolation. pt would leave site of window hit wall come back into site of window, smile and wave to staff then go to other side of room and repeat the hitting of wall and come into site of window and smile and wave. pt stopped after 4th time.
--- NOTE | 2022-11-12 13:50 | PC.NURSE ---
Patient continues to be in seclusion as his behaviors have not de-escalated. Patient stated, you're a dumbass witch. He asked this RN what my opinion was on presidency and when I responded he smirked and said, everything you think becomes fact huh. Well, a woman can't become president. Women can't manifest anything. Only men.
[2022-11-12 14:00] VITALS: BP 124/88; PULSE 96; RESP 17; TEMP 36.6; O2SAT 98
--- NOTE | 2022-11-12 15:03 | PC.NURSE ---
[id number] Patient taken out of seclusion as ordered per Dr. Sykes. Patient apologized to this nurse and other staff for being rude. However, he quickly began being rude and sarcastic with staff. Patient has ceased being aggressive at this time.
--- NOTE | 2022-11-12 18:06 | PC.NURSE ---
Patient consistently questioning staff about their sexuality. When another patient approached the nurses' station with complaints of his new medication making him feel like he wanted to hit someone this patient stepped closer to him and stated, go ahead and hit me then. You can hit me. You can hit me, and began beating on his chest like a gorilla. Staff took the other patient to his room and this patient followed and attempted to also go into the room. Staff was able to stand between patient and the room and security was notified. Patient asked this RN and the sitter, do you guys kiss all of the time? I bet you're dating. Is he your boyfriend? Once security arrived staff was able to redirect him to his room where he agreed to read for 30 minutes to try to calm himself.
[2022-11-12] MEDS: nicotine 2 mg Gum BUCCAL (20:07)
[2022-11-12] MEDS: trazodone 50 mg Tablet PO (20:07)
[2022-11-12 20:15] VITALS: BP 119/83; PULSE 104; RESP 18; TEMP 36.7; O2SAT 98
[2022-11-13 06:00] VITALS: BP 112/72; PULSE 113; RESP 18; TEMP 36.6; O2SAT 92
[2022-11-13] MEDS: CLONazepam 1 mg Tablet 2 MG PO ×2 (08:48→17:57)
[2022-11-13] MEDS: benztropine 1 mg Tablet PO (08:48)
[2022-11-13] MEDS: haloperidol 5 mg Tablet PO (08:48)
--- NOTE | 2022-11-13 11:22 | P.NPUPN_ITS ---
Subjective NPU Subjective: Patient presents today reporting that he is doing okay. He continued to have significant pressured speech but maybe had slight increased ability not to follow every train of thought with his flight of ideas. He continued with his intrusiveness with possible ever so slight ability to avoid conflict and confrontation though he did almost initiate a fight today with another patient. He was not put in seclusion or restraint today. Mental Status Exam MSE Comments: This is a well-nourished, well-developed slender, white male, in hospital scrubs, with adequate grooming and intense eye contact. Bizarre gestures noted including praying. He remained guarded and hostile on interview. Speech was increased in rate, with elevated volume. Mood described as okay. Affect was less irritable and labile than yesterday. Thought process was tangential. Thought content: patient denied any suicidal or homicidal ideation, there were no delusions reported but clear paranoia noted. He continued to show evidence of grandiosity and clear ideas of reference. He did at times appear to be respo nding to internal stimuli but denied on interview. He continued to have strong beliefs of infinite power and intelligence. His recent and remote memory appeared grossly intact. Alert and oriented times person and place but not reason. Insight remained poor. His judgment and impulse control are impaired. Vitals/I&O/Wt Last Vital Signs Temp 97.8 F 11/13/22 06:00 Pulse 113 H 11/13/22 06:00 Resp 18 11/13/22 06:00 BP 112/72 11/13/22 06:00 Pulse Ox 92 11/13/22 06:00 O2 Del Method Room Air 11/13/22 06:00 11/12/22 11/13/22 11/13/22 22:59 06:59 14:59 Intake Total 360 / 360 Balance 360 / 360 Weight last 48 hrs Weight 79.742 kg Data NPU 11/05/22 12:40 A&P Assessment and plan (1) Bipolar disorder with psychotic features: (2) Priscila: Plan This is a 27-year-old white male with a reported history of previous bipolar episode at least once who presents in avel priscila with significant movements of limited purpose 1. Monitor for worsening priscila, continued irritability. 2. Encourage individual, group, and milieu therapy. 3. Continue 1 to 1 for safety. 4. Recommend sober living treatment at the highest level of care to which the patient is willing to commit. 5. Patient is now on a 21-day hold. Increase Invega 9mg daily and Continue haldol 5mg in am, 10mg at night increased Klonopin to 2mg po bid. Prn Haldol 10mg for agitation not to exceed 30mg/24 hours. Attestations NPU Medical Necessity Statement*: Inpatient hospitalization is medically necessary and the clinically appropriate intervention, at this time. He continues to have challenging behaviors. We will monitor medications and make changes as indicated. Likely length of stay is 10- 14 days. Coding Level of Care Code Acute Code for [facility] Diagnoses Bipolar disorder with psychotic features F31.9 Priscila F30.9
[2022-11-13 14:00] VITALS: BP 111/79; PULSE 112; RESP 16; TEMP 36.7; O2SAT 96
--- NOTE | 2022-11-13 17:25 | PC.NURSE ---
patient took shower and was watching TV and now sleeping. Patient had a good visit with his parents and has remained calm after the visit. Patient sleeping at the table in the dayroom. Patient removed from 1:1 on trial basis
--- NOTE | 2022-11-14 04:07 | PC.NURSE ---
Addendum entered by Gideon Leon RN 11/14/22 06:36: Since being up @ 0600, he has stood at the RN station & has cussed the staff non-stop, called a nursing informatics clinical analyst a racial slur, blowing kisses at patient, has had horrible boundaries, told a patient she needs to cheer the fuck up & has berated everyone around him. I called Madonna (warehouse assembly worker) & relayed that [employer] had taken the 1:1 off as a trial & we need a 1:1 today. She is sending a a male sitter. Addendum entered by Gideon Leon RN 11/14/22 04:43: Patient came back to RN station & stated I will go ahead & take the fucking medicine so you will shut the fuck up . Mouth check done after medicine given. Patient then went back to room & is currently laying in bed. Original Note: Patient has been sleeping since dayshift thru 0330. Upon waking, the patient paced the hallway scowling into the RN station. Patient was asleep at the time of 2100 meds so this RN attempted to give them to him at 0345. He took the medicine cup & the water, dumped out the medications stating I just woke up, I don't need fucking medicine right now & drank the water. He paced the hallway again, this RN again explained that the medication was the scheduled medication, he stated I don't give a fuck, do you think I am going to take medicine when I leave here? I hope your fucking job is hell . He continued to berate staff at which point this RN didn't engage. He then paced the whaley again, went to his room & is currently laying down again.
[2022-11-14] MEDS: benztropine 1 mg Tablet PO ×3 (04:20→20:20)
[2022-11-14] MEDS: haloperidol 5 mg Tablet 10 MG PO ×2 (04:20→20:20)
[2022-11-14] MEDS: paliperidone ER 9 mg Tablet PO ×2 (04:22→20:20)
[2022-11-14 06:00] VITALS: RESP 18
[2022-11-14] MEDS: haloperidol 5 mg Tablet PO (09:31)
[2022-11-14] MEDS: CLONazepam 1 mg Tablet 2 MG PO ×2 (09:31→18:13)
[2022-11-14] MEDS: hyDROXYzine 25 mg Capsule 50 MG PO (09:52)
--- NOTE | 2022-11-14 11:55 | W.PM.NPUPNS ---
Subjective NPU Subjective: Patient presented today with a second day without needing seclusion or restraint. Per staff and observation he has had significant psychomotor slowing and has been able to sleep more in the last 24 hours then probably his entire stay. On presentation he had written a poem to and about this account underwriter which he read. He denies any side effects of the medications and reported feeling okay though he seemed quite lethargic and tired. Mental Status Exam MSE Comments: This is a well-nourished, well-developed slender, white male, in hospital scrubs, with adequate grooming and eye contact. No bizarre gestures noted. Speech was decreased rate and volume. Mood described as okay. Affect was less irritable and labile than yesterday. Thought process was less tangential. Thought content: patient denied any suicidal or homicidal ideation, there were no delusions reported but clear paranoia noted. He continued to show evidence of grandiosity and clear ideas of reference. He did not appear to be responding to internal stimuli and denied on interview. He continued to have strong beliefs of infinite power and intelligence. His recent and remote memory appeared grossly intact. Alert and oriented times person and place but not reason. Insight remained poor. His judgment and impulse control are impaired. Vitals/I&O/Wt Last Vital Signs Temp 98.1 F 11/13/22 14:00 Pulse 112 H 11/13/22 14:00 Resp 18 11/14/22 06:00 BP 111/79 11/13/22 14:00 Pulse Ox 96 11/13/22 14:00 O2 Del Method Room Air 11/13/22 06:00 Weight last 48 hrs Weight 79.742 kg Data NPU 11/05/22 12:40 A&P Assessment and plan (1) Bipolar disorder with psychotic features: (2) Priscila: Plan This is a 27-year-old white male with a reported history of previous bipolar episode at least once who presents in avel priscila with significant movements of limited purpose 1. Monitor for worsening priscila, continued irritability. 2. Encourage individual, group, and milieu therapy. 3. Continue 1 to 1 for safety. 4. Recommend sober living treatment at the highest level of care to which the patient is willing to commit. 5. Patient is now on a 21-day hold. Increase Invega 9mg daily and Continue haldol 5mg in am, 10mg at night increased Klonopin to 2mg po bid. Prn Haldol 10mg for agitation not to exceed 30mg/24 hours. We will consider decreasing the morning Klonopin and possibly discontinuing if he has another good day tomorrow. Attestations NPU Medical Necessity Statement*: Inpatient hospitalization is medically necessary and the clinically appropriate intervention, at this time. He continues to have challenging behaviors. We will monitor medications and make changes as indicated. Likely length of stay is 9-13 days. Coding Level of Care Code Acute Code for [facility] Diagnoses Bipolar disorder with psychotic features F31.9 Priscila F30.9
[2022-11-14] MEDS: trazodone 50 mg Tablet PO (20:20)
[2022-11-14 21:13] VITALS: RESP 18
[2022-11-15 06:00] VITALS: BP 114/80; PULSE 94; RESP 18; TEMP 36.6; O2SAT 99
[2022-11-15] MEDS: CLONazepam 1 mg Tablet 2 MG PO ×2 (08:19→20:12)
[2022-11-15] MEDS: benztropine 1 mg Tablet PO ×2 (08:19→20:13)
[2022-11-15] MEDS: haloperidol 5 mg Tablet PO (08:19)
[2022-11-15] MEDS: nicotine 2 mg Gum BUCCAL ×2 (10:00→18:00)
[2022-11-15] MEDS: hyDROXYzine 25 mg Capsule 50 MG PO ×2 (13:17→18:48)
[2022-11-15 13:24] VITALS: BP 118/74; PULSE 94; RESP 14; TEMP 36.4
--- NOTE | 2022-11-15 16:37 | P.NPUPN_ITS ---
Subjective NPU Subjective: Patient presented today reporting that he was feeling better. He continues to have tangential presentation but with continued improvement in psychomotor slowing back to a more normal range of kinetics. He continues to be provocative at times and ended up in conflict with people who were also lacking self- control. Reports are of now consistent night sleep as a suggestion of improvement as his circadian rhythm shows some chronicity. Otherwise he continued to need redirection but was able to be off of one-to-one for some time. Mental Status Exam MSE Comments: This is a well-nourished, well-developed slender, white male, in hospital scrubs, with adequate grooming and eye contact. No bizarre gestures noted. Speech was more normal rate and volume and finally not pressured. Mood descr ibed as grandiose. Affect was less irritable and labile. Thought process was less tangential. Thought content: patient denied any suicidal or homicidal ideation, there were no delusions reported but less paranoia noted. He continued to show evidence of grandiosity and clear ideas of reference. He did not appear to be responding to internal stimuli and denied on interview. He continued to have beliefs of infinite power and intelligence. His recent and remote memory appeared grossly intact. Alert and oriented times person and place but not reason. Insight remained poor. His judgment and impulse control are impaired. Vitals/I&O/Wt Last Vital Signs Temp 97.5 F L 11/15/22 22:00 Pulse 97 11/15/22 22:00 Resp 16 11/15/22 22:00 BP 110/75 11/15/22 22:00 Pulse Ox 97 11/15/22 22:00 O2 Del Method Room Air 11/15/22 22:00 Data NPU 11/05/22 12:40 A&P Assessment and plan (1) Bipolar disorder with psychotic features: (2) Priscila: Plan This is a 27-year-old white male with a reported history of previous bipolar episode at least once who presents in avel priscila with significant movements of limited purpose 1. Monitor for worsening priscila, continued irritability. 2. Encourage individual, group, and milieu therapy. 3. Continue every 15 minute checks for safety 4. Recommend sober living treatment at the highest level of care to which the patient is willing to commit. 5. Patient is now on a 21-day hold. Increase Invega 9mg daily and Continue haldol 5mg in am, 10mg at night increased Klonopin to 2mg po bid. Prn Haldol 10mg for agitation not to exceed 30mg/24 hours. We will consider decreasing the morning Klonopin and possibly discontinuing if he has another good day tomorrow. Attestations NPU Medical Necessity Statement*: Inpatient hospitalization is medically necessary and the clinically appropriate intervention, at this time. He continues to have challenging behaviors. We will monitor medications and make changes as indicated. Likely length of stay is 9-12 days. Coding Level of Care Code Acute Code for [facility] Diagnoses Bipolar disorder with psychotic features F31.9 Priscila F30.9
[2022-11-15] MEDS: trazodone 50 mg Tablet PO (20:12)
[2022-11-15] MEDS: paliperidone ER 9 mg Tablet PO (20:13)
[2022-11-15] MEDS: haloperidol 5 mg Tablet 10 MG PO (20:13)
[2022-11-15 22:00] VITALS: BP 110/75; PULSE 97; RESP 16; TEMP 36.4; O2SAT 97
[2022-11-16 06:00] VITALS: BP 109/79; PULSE 93; RESP 17; O2SAT 95
[2022-11-16] MEDS: haloperidol 5 mg Tablet PO ×2 (07:58→16:45)
[2022-11-16] MEDS: benztropine 1 mg Tablet PO ×3 (07:58→20:16)
[2022-11-16] MEDS: CLONazepam 1 mg Tablet 2 MG PO ×2 (07:58→20:16)
--- NOTE | 2022-11-16 08:43 | PC.NURSE ---
PT GOT INTO A VERBAL ALTERCATION WITH ANOTHER PT. PT WAS INSTIGATING A FIGHT WITH ANOTHER PT.PT WAS ABLE TO BE REMOVED FROM THE SITUATION AND OTHER PT WAS MOVED TO OTHER SIDE OF UNIT TO PREVENT FURTHER ALTERCATIONS.
[2022-11-16] MEDS: nicotine 2 mg Gum BUCCAL (09:55)
[2022-11-16 14:00] VITALS: BP 135/88; PULSE 93; RESP 20; TEMP 36.6; O2SAT 98
[2022-11-16] MEDS: diphenhydrAMINE 50 mg Capsule PO (16:45)
[2022-11-16] MEDS: LORazepam 2 mg Tablet PO (16:45)
--- NOTE | 2022-11-16 17:35 | PC.NURSE ---
Pt woke up in a horrible mood, talking to himself and mumbling cuss words when he walked past the nurses station. Pt reached through the glass and dumped out the snack bucket. Pt walked down the whaley and stopped again at the nurses station to knock over and spill a cup of lemonade. Pt was encouraged to clean up his own mess, pt did wipe it up.
--- NOTE | 2022-11-16 19:07 | P.NPUPN_ITS ---
Subjective NPU Subjective: Patient presented today reporting that he is doing better. He continues to be quite mercurial and whether he is in a really good mood, or whether he is being irritable and engaging some other client with a irritable nature. He continues to be much more redirectable without significant resistance. Mental Status Exam MSE Comments: This is a well-nourished, well-developed slender, white male, in hospital scrubs, with adequate grooming and eye contact. No bizarre gestures noted. Speech was more normal rate and volume and finally not pressured. Mood described as fine. Affect was still irritable and less labile. Thought process was less tangential. Thought content: patient denied any suicidal or homicidal ideation, there were no delusions reported but less paranoia noted. He con tinued to show evidence of grandiosity and clear ideas of reference. He did not appear to be responding to internal stimuli and denied on interview. He continued to have beliefs of infinite power and intelligence. His recent and remote memory appeared grossly intact. Alert and oriented times person and place but not reason. Insight remained poor. His judgment and impulse control are impaired. Vitals/I&O/Wt Last Vital Signs Temp 97.9 F 11/16/22 14:00 Pulse 93 11/16/22 14:00 Resp 20 H 11/16/22 14:00 BP 135/88 11/16/22 14:00 Pulse Ox 98 11/16/22 14:00 O2 Del Method Room Air 11/16/22 14:00 11/16/22 11/16/22 11/16/22 06:59 14:59 22:59 Intake Total 0 / 0 0 / 0 Balance 0 / 0 0 / 0 Data NPU 11/05/22 12:40 A&P Assessment and plan (1) Bipolar disorder with psychotic features: (2) Priscila: Plan This is a 27-year-old white male with a reported history of previous bipolar episode at least once who presents in avel priscila with significant movements of limited purpose 1. Monitor for worsening priscila, continued irritability. 2. Encourage individual, group, and milieu therapy. 3. Continue every 15 minute checks for safety 4. Recommend sober living treatment at the highest level of care to which the patient is willing to commit. 5. Patient is now on a 21-day hold. Increase Invega 9mg daily and Continue haldol 5mg in am, 10mg at night increased Klonopin to 2mg po bid. Prn Haldol 10mg for agitation not to exceed 30mg/24 hours. We will consider decreasing the morning Klonopin and possibly discontinuing if he has another good day tomorrow. Attestations NPU Medical Necessity Statement*: Inpatient hospitalization is medically necessary and the clinically appropriate intervention, at this time. He continues to have challenging behaviors. We will monitor medications and make changes as indicated. Likely length of stay is 8-11 days. Coding Level of Care Code Acute Code for [facility] Diagnoses Bipolar disorder with psychotic features F31.9 Priscila F30.9
[2022-11-16] MEDS: haloperidol 5 mg Tablet 10 MG PO (20:16)
[2022-11-16] MEDS: trazodone 50 mg Tablet PO (20:16)
[2022-11-16] MEDS: paliperidone ER 9 mg Tablet PO (20:16)
[2022-11-16 21:28] VITALS: RESP 12
--- NOTE | 2022-11-17 01:17 | PC.NURSE ---
Pt up at nurses station, agitated however denies need for food or drink. States I don't need anything after you shoved all those pills down my throat . Security down here talking w/INSURANCE FOLLOW UP REP, and pt stated you don't know anything about beer, shut the fuck up . Pt then walked away and went back to his room.
[2022-11-17 06:00] VITALS: BP 109/76; PULSE 80; RESP 16; TEMP 36.5; O2SAT 98
[2022-11-17] MEDS: CLONazepam 1 mg Tablet 2 MG PO ×2 (09:43→20:19)
[2022-11-17] MEDS: haloperidol 5 mg Tablet PO ×2 (09:43→15:37)
[2022-11-17] MEDS: benztropine 1 mg Tablet PO ×3 (09:43→20:23)
[2022-11-17] MEDS: ARIPiprazole 10 mg Tablet 5 MG PO (09:44)
[2022-11-17 14:00] VITALS: BP 113/80; PULSE 108; TEMP 36.6; O2SAT 96
[2022-11-17] MEDS: nicotine 2 mg Gum BUCCAL (14:41)
[2022-11-17] MEDS: LORazepam 2 mg Tablet PO (15:37)
[2022-11-17] MEDS: diphenhydrAMINE 50 mg Capsule PO (15:37)
--- NOTE | 2022-11-17 15:40 | PC.NURSE ---
Pt was experiencing anxiety and asked for meds at the nurses station. Administered 2mg PO Ativan, 50mg PO Benadryl, 5mg PO Haldol, 1mg PO Cogentin. no distress noted
--- NOTE | 2022-11-17 18:49 | W.PM.NPUPNS ---
Subjective NPU Subjective: Patient presented today reporting that he was feeling okay. He is becoming more social and engaging with other people and less apt to statements to create conflict. We discussed the fact that he had significant improvement since his hospitalization began but there were still need more time to get him to what has been identified as a functional baseline. We discussed needing to keep him longer and he was served for his 90-day hold and his hearing will be tomorrow. He denies any side effects with initiation of the Abilify but we discussed awaiting family input on previous medications. Mental Status Exam MSE Comments: This is a well-nourished, well-developed slender, white male, in hospital scrubs, with adequate grooming and eye contact. No bizarre gestures noted. Speech was more normal rate and volume and finally not pressured but spoken in a monotone fashion. Mood described as fine. Affect was still labile, but less irritable. Thought process was less tangential. Thought content: patient denied any suicidal or homicidal ideation, there were no delusions reported and less paranoia noted. He continued to show evidence of grandiosity and clear ideas of reference. He did not appear to be responding to internal stimuli and denied on interview. He continued to have beliefs of infinite power and intelligence. His recent and remote memory appeared grossly intact. Alert and oriented times person and place but not reason. Insight remained poor. His judgment and impulse control are impaired. Vitals/I&O/Wt Last Vital Signs Temp 97.8 F 11/17/22 20:11 Pulse 104 H 11/17/22 20:11 Resp 18 11/17/22 20:11 BP 148/89 11/17/22 20:11 Pulse Ox 96 11/17/22 20:11 O2 Del Method Room Air 11/17/22 20:11 Data NPU 11/05/22 12:40 A&P Assessment and plan (1) Bipolar disorder with psychotic features: (2) Priscila: Plan This is a 27-year-old white male with a reported history of previous bipolar episode at least once who presents in avel priscila with significant movements of limited purpose 1. Monitor for worsening priscila, continued irritability. 2. Encourage individual, group, and milieu therapy. 3. Continue every 15 minute checks for safety 4. Recommend sober living treatment at the highest level of care to which the patient is willing to commit. 5. Patient is now on a 21-day hold. Increase Invega 9mg daily and Continue haldol 5mg in am, 10mg at night increased Klonopin to 2mg po bid. Prn Haldol 10mg for agitation not to exceed 30mg/24 hours. Discontinued Klonopin morning dose, decreasing Klonopin to 2 mg p.o. nightly and started Abilify 5 mg p.o. daily with a plan to increase to 10 mg tomorrow. Patient has had some response to Invega but not enough to feel confident about the injection. We will consider augmentation with Abilify versus switching and considering lithium or Depakote. 6. Filed a 90-day hold. Hearing tomorrow at 1:00. Attestations NPU Medical Necessity Statement*: Inpatient hospitalization is medically necessary and the clinically appropriate intervention, at this time. He continues to have challenging behaviors. We will monitor medications and make changes as indicated. Likely length of stay is 8-11 days. Coding Level of Care Code Acute Code for [facility] Diagnoses Bipolar disorder with psychotic features F31.9 Priscila F30.9
[2022-11-17 20:11] VITALS: BP 148/89; PULSE 104; RESP 18; TEMP 36.6; O2SAT 96
[2022-11-17] MEDS: haloperidol 5 mg Tablet 10 MG PO (20:23)
[2022-11-17] MEDS: trazodone 50 mg Tablet PO (20:24)
[2022-11-17] MEDS: paliperidone ER 9 mg Tablet PO (20:24)
[2022-11-18 06:00] VITALS: RESP 15
[2022-11-18] MEDS: benztropine 1 mg Tablet PO (08:15)
[2022-11-18] MEDS: ARIPiprazole 10 mg Tablet PO (08:16)
[2022-11-18] MEDS: haloperidol 5 mg Tablet PO (08:16)
[2022-11-18 14:00] VITALS: BP 109/77; PULSE 110; RESP 20; TEMP 36.8; O2SAT 97
--- NOTE | 2022-11-18 15:01 | W.PM.NPUPNS ---
Subjective NPU Subjective: Patient presented today reporting that he is feeling a little better. We went to his 90-day hold hearing and he did not testify and in fact acknowledge that he needs to have more improvement before he would be functional at discharge and a 90-day hold was authorized. He denied any side effects from the Abilify and reported feeling somewhat better overall. No episodes requiring seclusion or restraint occurred and he continues off of one-to-one. Mental Status Exam MSE Comments: This is a well-nourished, well-developed slender, white male, in hospital scrubs, with adequate grooming and eye contact. No bizarre gestures noted. Speech was more normal rate and volume and finally not pressured but spoken in a monotone fashion. Mood described as fine. Affect was less labile labile and congruent. Thought process was less tangential. Thought content: patient denied any suicidal or homicidal ideation, there were no delusions reported and less paranoia noted. He continued to show evidence of grandiosity and clear ideas of reference. He did not appear to be responding to internal stimuli and denied on interview. He continued to have beliefs of infinite power and intelligence. His recent and remote memory appeared grossly intact. Alert and oriented times person and place but not reason. Insight remained poor. His judgment and impulse control are impaired. Vitals/I&O/Wt Last Vital Signs Temp 98.3 F 11/18/22 14:00 Pulse 110 H 11/18/22 14:00 Resp 16 11/18/22 21:31 BP 109/77 11/18/22 14:00 Pulse Ox 97 11/18/22 14:00 O2 Del Method Room Air 11/18/22 14:00 Data NPU 11/05/22 12:40 A&P Assessment and plan (1) Bipolar disorder with psychotic features: (2) Priscila: Plan This is a 27-year-old white male with a reported history of previous bipolar episode at least once who presents in avel priscila with significant movements of limited purpose 1. Monitor for worsening priscila, continued irritability. 2. Encourage individual, group, and milieu therapy. 3. Continue every 15 minute checks for safety 4. Recommend sober living treatment at the highest level of care to which the patient is willing to commit. 5. Patient is now on a 21-day hold. Increase Invega 9mg daily and Continue haldol 5mg in am, 10mg at night increased Klonopin to 2mg po bid. Prn Haldol 10mg for agitation not to exceed 30mg/24 hours. Discontinued Klonopin morning dose, decreasing Klonopin to 2 mg p.o. nightly and started Abilify 5 mg p.o. and increased to 10 mg. Patient has had some response to Invega but not enough to feel confident about the injection. We will consider augmentation with Abilify versus switching and considering lithium or Depakote. 6. 90-day hold granted. Attestations NPU Medical Necessity Statement*: Inpatient hospitalization is medically necessary and the clinically appropriate intervention, at this time. He continues to have challenging behaviors. We will monitor medications and make changes as indicated. Likely length of stay is 8-11 days. Coding Level of Care Code Acute Code for [facility] Fwd Diagnoses Bipolar disorder with psychotic features F31.9 Priscila F30.9
[2022-11-18] MEDS: CLONazepam 1 mg Tablet 2 MG PO (20:54)
[2022-11-18] MEDS: haloperidol 5 mg Tablet 10 MG PO (20:54)
[2022-11-18] MEDS: paliperidone ER 9 mg Tablet PO (20:55)
[2022-11-18 21:31] VITALS: RESP 16
[2022-11-19 06:00] VITALS: RESP 16
[2022-11-19] MEDS: haloperidol 5 mg Tablet PO (08:11)
[2022-11-19] MEDS: benztropine 1 mg Tablet PO ×2 (08:11→21:04)
[2022-11-19] MEDS: ARIPiprazole 10 mg Tablet PO (08:12)
--- NOTE | 2022-11-19 09:03 | PC.NURSE ---
PT CURRENTLY DENIES SI/HI/AH/VH. PT HAD TO BE WOKEN MULTIPLE TIMES FOR BREAKFAST. PT REQUESTED FOR THE ARMS TO THE WHEELCHAIR TO BE REMOVED THAT IS WHAT HE IS USED TO AT HOME. PT CURRENT NEEDS ARE MET. WILL CONTINUE TO MONITOR PT.
[2022-11-19] MEDS: hyDROXYzine 25 mg Capsule 50 MG PO ×2 (11:55→17:43)
[2022-11-19] MEDS: nicotine 2 mg Gum BUCCAL (11:56)
--- NOTE | 2022-11-19 12:00 | P.NPUPN_ITS ---
Subjective NPU Subjective: Patient presented today reporting that he is feeling better. We agreed to start addressing medications that are likely leading to him feeling lethargic. We removed the morning Klonopin and discussed decreasing the bedtime Klonopin to 1 mg and ultimately discontinuing it as long as he is getting sleep. We discussed not getting a retrial of Depakote, he reports that his experience with lithium has not been good, we agreed we would review that with family. We agreed to titrate the Abilify and then consider whether to decrease the Haldol versus the Invega. Otherwise reports that he is less irritable, being less irritating to other clients. However he continues to have some level of intrusiveness and some pressured nature to his engagements where it is clear he is depressed to make a comment often regardless of appropriateness. Mental Status Exam MSE Comments: This is a well-nourished, well-developed slender, white male, in hospital scrubs, with adequate grooming and eye contact. No bizarre gestures noted. Still poor boundaries but improving. Speech was more normal rate and volume and not pressured but spoken in a monotone fashion. Mood described as fine. Affect was less labile and congruent. Thought process was less tangential. Thought content: patient denied any suicidal or homicidal ideation, there were no delusions reported and less paranoia noted. He continued to show evidence of grandiosity and clear ideas of reference. He did not appear to be responding to internal stimuli and denied on interview. He continued to have beliefs of infinite power and intelligence. His recent and remote memory appeared grossly intact. Alert and oriented times 3. Insight improving. His judgment and impulse control are impaired, but improving. Vitals/I&O/Wt Last Vital Signs Temp 98.3 F 11/18/22 14:00 Pulse 110 H 11/18/22 14:00 Resp 16 11/19/22 06:00 BP 109/77 11/18/22 14:00 Pulse Ox 97 11/18/22 14:00 O2 Del Method Room Air 11/18/22 14:00 Data NPU 11/05/22 12:40 A&P Assessment and plan (1) Bipolar disorder with psychotic features: (2) Priscila: Plan This is a 27-year-old white male with a reported history of previous bipolar episode at least once who presents in avel priscila with significant movements of limited purpose 1. Monitor for worsening priscila, continued irritability. 2. Encourage individual, group, and milieu therapy. 3. Continue every 15 minute checks for safety 4. Recommend sober living treatment at the highest level of care to which the patient is willing to commit. 5. Patient is now on a 90-day hold. Increased Invega 9mg daily and Continue haldol 5mg in am, 10mg at night increased Klonopin to 2mg po bid. Prn Haldol 10mg for agitation not to exceed 30mg/24 hours. Discontinued Klonopin morning dose, decreasing Klonopin to 2 mg p.o. nightly and started Radha lify 5 mg p.o. and increased to 10 mg. Consider 15 mg Monday. Patient has had some response to Invega but not enough to feel confident about the injection. We will consider augmentation with Abilify versus switching and considering lithium or Depakote. Family reports Depakote trial was less than impressive and patient reports lithium is good for him. We will decrease night Klonopin to 1 mg. 6. 90-day hold granted. Attestations NPU Medical Necessity Statement*: Inpatient hospitalization is medically necessary and the clinically appropriate intervention, at this time. He continues to have challenging behaviors. We will monitor medications and make changes as indicated. Likely length of stay is 8-11 days. Coding Level of Care Code Acute Code for [facility] Fwd Diagnoses Bipolar disorder with psychotic features F31.9 Priscila F30.9
[2022-11-19 14:00] VITALS: BP 123/88; PULSE 181; RESP 16; TEMP 36.7; O2SAT 97
[2022-11-19] MEDS: CLONazepam 1 mg Tablet 2 MG PO (21:04)
[2022-11-19] MEDS: paliperidone ER 9 mg Tablet PO (21:04)
[2022-11-19] MEDS: haloperidol 5 mg Tablet 10 MG PO (21:05)
[2022-11-19 21:54] VITALS: BP 116/81; PULSE 117; RESP 18; TEMP 36.5; O2SAT 96
[2022-11-20 06:00] VITALS: BP 115/83; PULSE 84; RESP 18; O2SAT 99
[2022-11-20] MEDS: haloperidol 5 mg Tablet PO (07:39)
[2022-11-20] MEDS: docusate sodium 100 mg Capsule PO (07:39)
[2022-11-20] MEDS: benztropine 1 mg Tablet PO ×2 (07:40→21:27)
[2022-11-20] MEDS: ARIPiprazole 10 mg Tablet PO (07:40)
[2022-11-20] MEDS: CLONazepam 1 mg Tablet 2 MG PO (09:35)
--- NOTE | 2022-11-20 09:37 | PC.NURSE ---
Administerd 2mg of Ativan to patient. Patient in a manic state, arguing with fellow patients and staff. Patient confronting patient's about personal space. Patient on his hands in knees in the whaley. Patient using clang associations.
[2022-11-20] MEDS: ARIPiprazole 10 mg Tablet 5 MG PO (10:29)
[2022-11-20 14:00] VITALS: BP 123/80; PULSE 124; RESP 16; TEMP 36.6; O2SAT 98
--- NOTE | 2022-11-20 16:52 | P.NPUPN_ITS ---
Subjective NPU Subjective: Patient presented today reporting that he was quite manic. He did require as needed medication including Klonopin. We discussed the risks, benefits and alternatives of increasing his Abilify to 15 today and 20 tomorrow. We discussed monitoring his sleep and arousal and possibly going back to the 2 mg of Klonopin p.o. nightly. He continues to be pleasant however but was intrusive and tangential. Mental Status Exam MSE Comments: This is a well-nourished, well-developed slender, white male, in hospital scrubs, with adequate grooming and eye contact. No bizarre gestures noted. Still poor boundaries but improving. Speech was more normal rate and volume and not pressured but spoken in a monotone fashion. Mood described as fine. Affect was less labile and congruent. Thought process was less tangential. Thought content: patient denied any suicidal or homicidal ideation, there were no delusions reported and less paranoia noted. He continued to show evidence of grandiosity and clear ideas of reference. He did not appear to be responding to internal stimuli and denied on interview. He continued to have beliefs of infinite power and intelligence. His recent and remote memory appeared grossly intact. Alert and oriented times 3. Insight improving. His judgment and impul se control are impaired, but improving. Vitals/I&O/Wt Last Vital Signs Temp 97.6 F 11/20/22 20:33 Pulse 87 11/20/22 20:33 Resp 18 11/20/22 20:33 BP 127/80 11/20/22 20:33 Pulse Ox 97 11/20/22 20:33 O2 Del Method Room Air 11/19/22 14:00 11/20/22 14:59 Intake Total Balance Weight last 48 hrs Weight 80.853 kg Data NPU 11/05/22 12:40 A&P Assessment and plan (1) Bipolar disorder with psychotic features: (2) Priscila: Plan This is a 27-year-old white male with a reported history of previous bipolar episode at least once who presents in avel priscila with significant movements of limited purpose 1. Monitor for worsening priscila, continued irritability. 2. Encourage individual, group, and milieu therapy. 3. Continue every 15 minute checks for safety 4. Recommend sober living treatment at the highest level of care to which the patient is willing to commit. 5. Patient is now on a 90-day hold. Increased Invega 9mg daily and Continue haldol 5mg in am, 10mg at night increased Klonopin to 2mg po bid. Prn Haldol 10mg for agitation not to exceed 30mg/24 hours. Discontinued Klonopin morning dose, decreasing Klonopin to 2 mg p.o. nightly and started Abilify 5 mg p.o. and increased to 10 mg. Increased to 15 mg today. And will be 20 mg tomorrow. Patient has had some response to Invega but not enough to feel confident about the injection. We will consider augmentation with Abilify versus switching and considering lithium or Depakote. Family reports Depakote trial was less than impressive and patient reports lithium is good for him. We will decreased night Klonopin to 1 mg. But may return to 2 mg tomorrow night if he has a similarly activated day. 6. 90-day hold granted. Attestations NPU Medical Necessity Statement*: Inpatient hospitalization is medically necessary and the clinically appropriate intervention, at this time. He continues to have challenging behaviors. We will monitor medications and make changes as indicated. Likely length of stay is 8-11 days. Coding Level of Care Code Acute Code for [facility] Fwd Diagnoses Bipolar disorder with psychotic features F31.9 Priscila F30.9
[2022-11-20 20:33] VITALS: BP 127/80; PULSE 87; RESP 18; TEMP 36.4; O2SAT 97
[2022-11-20] MEDS: paliperidone ER 9 mg Tablet PO (21:27)
[2022-11-20] MEDS: haloperidol 5 mg Tablet 10 MG PO (21:28)
[2022-11-20] MEDS: CLONazepam 1 mg Tablet PO (21:28)
[2022-11-20] MEDS: nicotine 2 mg Gum BUCCAL (22:03)
[2022-11-21 06:00] VITALS: BP 110/66; PULSE 72; RESP 16; O2SAT 96
[2022-11-21] MEDS: ARIPiprazole 10 mg Tablet 20 MG PO (08:03)
[2022-11-21] MEDS: haloperidol 5 mg Tablet PO (08:03)
[2022-11-21] MEDS: benztropine 1 mg Tablet PO ×3 (08:04→20:37)
[2022-11-21] MEDS: nicotine 2 mg Gum BUCCAL ×2 (10:55→13:35)
[2022-11-21] MEDS: CLONazepam 1 mg Tablet 2 MG PO (13:34)
[2022-11-21 14:00] VITALS: BP 129/80; PULSE 100; RESP 17; TEMP 36.7; O2SAT 95
--- NOTE | 2022-11-21 18:32 | P.NPUPN_ITS ---
Subjective NPU Subjective: Patient presented today reporting that he is feeling good. He continues to identify his priscila and is high energy. At the times he seen dancing if music was on and singing. Continued pressured tangential speech per staff. We discussed continuing to watch his sleep pattern given him not getting good sleep the previous night we discussed the possibility of increasing his benzodiazepine back to ensure reasonable rest. Mental Status Exam MSE Comments: This is a well-nourished, well-developed slender, white male, in hospital scrubs, with adequate grooming and eye contact. No bizarre gestures noted, but he had episode where he got on the ground and prayed in and all hail type fashion. Still poor boundaries but improving. Speech was increased rate and volume and pressured but spoken in a monotone fashion. Mood described as fine. Affect was less labile and congruent. Thought process was tangential. Thought content: patient denied any suicidal or homicidal ideation, there were no delusions reported and less paranoia noted. He continued to show evidence of grandiosity and clear ideas of reference. He did not appear to be responding to internal stimuli and denied on interview. He continued to have beliefs of infinite power and intelligence. His recent and remote memory appeared grossly intact. Alert and oriented times 3. Insight improving. His judgment and impulse control are impaired, but improving. Vitals/I&O/Wt Last Vital Signs Temp 98.3 F 11/21/22 20:42 Pulse 96 11/21/22 20:42 Resp 18 11/21/22 20:42 BP 135/90 11/21/22 20:42 Pulse Ox 98 11/21/22 20:42 O2 Del Method Room Air 11/19/22 14:00 11/21/22 14:59 Intake Total 0 / 0 Balance 0 / 0 Weight last 48 hrs Weight 80.853 kg Data NPU 11/05/22 12:40 A&P Assessment and plan (1) Bipolar disorder with psychotic features: (2) Priscila: Plan This is a 27-year-old white male with a reported history of previous bipolar e pisode at least once who presents in avel priscila with significant movements of limited purpose 1. Monitor for worsening priscila, continued irritability. 2. Encourage individual, group, and milieu therapy. 3. Continue every 15 minute checks for safety 4. Recommend sober living treatment at the highest level of care to which the patient is willing to commit. 5. Patient is now on a 90-day hold. Increased Invega 9mg daily and Continue haldol 5mg in am, 10mg at night increased Klonopin to 2mg po bid. Prn Haldol 10mg for agitation not to exceed 30mg/24 hours. Discontinued K lonopin morning dose, decreasing Klonopin to 2 mg p.o. nightly and started Abilify 5 mg p.o. and increased to 10 mg. Increased to 15 mg today. And will be 20 mg tomorrow. Patient has had some response to Invega but not enough to feel confident about the injection. We will consider augmentation with Abilify versus switching and considering lithium or Depakote. Family reports Depakote trial was less than impressive and patient reports lithium is good for him. We will decreased night Klonopin to 1 mg. But may return to 2 mg tomorrow night if he has a similarly activated day. 6. 90-day hold granted. Attestations NPU Medical Necessity Statement*: Inpatient hospitalization is medically necessary and the clinically appropriate intervention, at this time. He continues to have challenging behaviors. We will monitor medications and make changes as indicated. Likely length of stay is 8-11 days. Coding Level of Care Code Acute Code for [facility] Diagnoses Bipolar disorder with psychotic features F31.9 Priscila F30.9
[2022-11-21] MEDS: paliperidone ER 9 mg Tablet PO (20:37)
[2022-11-21] MEDS: trazodone 50 mg Tablet PO (20:37)
[2022-11-21] MEDS: haloperidol 5 mg Tablet 10 MG PO (20:37)
[2022-11-21] MEDS: CLONazepam 1 mg Tablet PO (20:38)
[2022-11-21 20:42] VITALS: BP 135/90; PULSE 96; RESP 18; TEMP 36.8; O2SAT 98
[2022-11-22 06:00] VITALS: BP 96/59; PULSE 93; RESP 18; TEMP 36.5; O2SAT 98
[2022-11-22] MEDS: haloperidol 5 mg Tablet PO (07:41)
[2022-11-22] MEDS: ARIPiprazole 10 mg Tablet 20 MG PO (07:41)
[2022-11-22] MEDS: benztropine 1 mg Tablet PO ×2 (07:41→20:18)
[2022-11-22] MEDS: nicotine 2 mg Gum BUCCAL (08:03)
[2022-11-22 14:00] VITALS: BP 125/77; PULSE 68; RESP 17; TEMP 36.5; O2SAT 95
--- NOTE | 2022-11-22 16:55 | W.PM.NPUPNS ---
Subjective NPU Subjective: Patient presented today reporting that he is doing okay. His energy was less kinetic per staff reports and observation. See less intrusive and reported feeling less drive to comment. MD from 2 days ago diminished to a point where we agreed not to increase his Klonopin back to 2 mg p.o. nightly and having daytime Klonopin only as a as needed. Mental Status Exam MSE Comments: This is a well-nourished, well-developed slender, white male, in hospital scrubs, with adequate grooming and eye contact. No bizarre gestures noted. Still poor boundaries but improving. Speech was more normal rate and volume and slightly less pressured but spoken in a monotone fashion. Mood described as fine. Affect was less labile and congruent. Thought process was less tangential. Thought content: patient denied any suicidal or homicidal ideation, there were no delusions reported and less paranoia noted. He started to show less evidence of grandiosity and ideas of reference. He did not appear to be responding to internal stimuli and denied on interview. He continued to have beliefs of infinite power and intelligence. His recent and remote memory appeared grossly intact. Alert and oriented times 3. Insight improving. His judgment and impulse control are impaired, but improving. Vitals/I&O/Wt Last Vital Signs Temp 98.0 F 11/22/22 21:10 Pulse 96 11/22/22 21:10 Resp 22 H 11/22/22 21:10 BP 126/85 11/22/22 21:10 Pulse Ox 98 11/22/22 21:10 O2 Del Method Room Air 11/22/22 21:10 Data NPU 11/05/22 12:40 A&P Assessment and plan (1) Bipolar disorder with psychotic features: (2) Priscila: Plan This is a 27-year-old white male with a reported history of previous bipolar episode at least once who presents in avel priscila with significant movements of limited purpose 1. Monitor for worsening priscila, continued irritability. 2. Encourage individual, group, and milieu therapy. 3. Continue every 15 minute checks for safety 4. Recommend sober living treatment at the highest level of care to which the patient is willing to commit. 5. Patient is now on a 90-day hold. Increased Invega 9mg daily and Continue haldol 5mg in am, 10mg at night increased Klonopin to 2mg po bid. Prn Haldol 10mg for agitation not to exceed 30mg/24 hours. Discontinued Klonopin morning dose, decreasing Klonopin to 2 mg p.o. nightly and started Abilify 5 mg p.o. and increased to 10 mg. Increased to 15 mg today. And will be 20 mg tomorrow. Patient has had some response to Invega but not enough to feel confident about the injection. We chose Abilify for augmentation versus switching, only time will tell and considered lithium or Depakote. Family reports Depakote trial was less than impressive and patient reports lithium is not good for him. We decreased night Klonopin to 1 mg. 6. 90-day hold granted. Attestations NPU Medical Necessity Statement*: Inpatient hospitalization is medically necessary and the clinically appropriate intervention, at this time. He continues to have challenging behaviors. We will monitor medications and make changes as indicated. Likely length of stay is 8-11 days. Coding Level of Care Code Acute Code for [facility] Diagnoses Bipolar disorder with psychotic features F31.9 Priscila F30.9
[2022-11-22] MEDS: paliperidone ER 9 mg Tablet PO (20:17)
[2022-11-22] MEDS: haloperidol 5 mg Tablet 10 MG PO (20:17)
[2022-11-22] MEDS: CLONazepam 1 mg Tablet PO (20:17)
[2022-11-22] MEDS: trazodone 50 mg Tablet PO (20:17)
[2022-11-22 21:10] VITALS: BP 126/85; PULSE 96; RESP 22; TEMP 36.7; O2SAT 98
[2022-11-23 06:00] VITALS: RESP 15
[2022-11-23] MEDS: cetylpyridinium Lozenge 1 EACH MUCOUS MEM (06:10)
[2022-11-23] MEDS: ARIPiprazole 10 mg Tablet 20 MG PO (08:41)
[2022-11-23] MEDS: haloperidol 5 mg Tablet PO ×2 (08:42→18:32)
[2022-11-23] MEDS: benztropine 1 mg Tablet PO ×2 (08:42→20:30)
[2022-11-23] MEDS: nicotine 2 mg Gum BUCCAL ×2 (12:51→18:31)
[2022-11-23] MEDS: CLONazepam 1 mg Tablet PO ×2 (13:44→20:30)
[2022-11-23 14:00] VITALS: BP 108/69; PULSE 109; RESP 17; TEMP 37.1; O2SAT 94
--- NOTE | 2022-11-23 18:26 | W.PM.NPUPNS ---
Subjective NPU Subjective: Patient presents today reporting that he is doing better. He continues to have intrusive episodes that are challenging for other clients but not challenging for staff as he was the beginning. He appears to have benefited from the increase in the Abilify. We discussed continuing to increase the Abilify and considering possibly reducing or discontinuing some of the other medications. Mental Status Exam MSE Comments: This is a well-nourished, well-developed slender, white male, in hospital scrubs, with adequate grooming and eye contact. No bizarre gestures noted. Still poor boundaries but improving. Speech was more normal rate and volume and slightly less pressured but spoken in a monotone fashion. Mood described as fine. Affect was less labile and congruent. Thought process was less tangential. Thought content: patient denied any suicidal or homicidal ideation, there were no delusions reported and less paranoia noted. He started to show less evidence of grandiosity and ideas of reference. He did not appear to be responding to internal stimuli and denied on interview. He continued to have beliefs of infinite power and intelligence. His recent and remote memory appeared grossly intact. Alert and oriented times 3. Insight improving. His judgment and impulse control are impaired, but improving. Vitals/I&O/Wt Last Vital Signs Temp 98.3 F 11/23/22 20:53 Pulse 82 11/23/22 20:53 Resp 17 11/23/22 20:53 BP 126/86 11/23/22 20:53 Pulse Ox 96 11/23/22 20:53 O2 Del Method Room Air 11/23/22 20:53 Data NPU 11/05/22 12:40 A&P Assessment and plan (1) Bipolar disorder with psychotic features: (2) Priscila: Plan This is a 27-year-old white male with a reported history of previous bipolar episode at least once who presents in avel priscila with significant movements of limited purpose 1. Monitor for worsening priscila, continued irritability. 2. Encourage individual, group, and milieu therapy. 3. Continue every 15 minute checks for safety 4. Recommend sober living treatment at the highest level of care to which the patient is willing to commit. 5. Patient is now on a 90-day hold. Increased Invega 9mg daily and Continue haldol 5mg in am, 10mg at night increased Klonopin to 2mg po bid. Prn Haldol 10mg for agitation not to exceed 30mg/24 hours. Discontinued Klonopin morning dose, decreasing Klonopin to 2 mg p.o. nightly and started Abilify 5 mg p.o. and increased to 10 mg. Increased to 15 mg, then to 20 mg on 11/21/2022. Likely increase to 30 mg tomorrow. And Patient has had some response to Invega but not enough to feel confident about the injection. We chose Abilify for augmentation versus switching, only time will tell and considered lithium or Depakote. Family reports Depakote trial was less than impressive and patient reports lithium is not good for him. We decreased night Klonopin to 1 mg. 6. 90-day hold granted. Attestations NPU Medical Necessity Statement*: Inpatient hospitalization is medically necessary and the clinically appropriate intervention, at this time. He continues to have challenging behaviors. We will monitor medications and make changes as indicated. Likely length of stay is 8-11 days. Coding Level of Care Code Acute Code for [facility] Diagnoses Bipolar disorder with psychotic features F31.9 Priscila F30.9
[2022-11-23] MEDS: haloperidol 5 mg Tablet 10 MG PO (20:30)
[2022-11-23] MEDS: paliperidone ER 9 mg Tablet PO (20:30)
[2022-11-23 20:53] VITALS: BP 126/86; PULSE 82; RESP 17; TEMP 36.8; O2SAT 96
[2022-11-24 06:00] VITALS: BP 121/73; PULSE 84; RESP 16; TEMP 36.7; O2SAT 96
[2022-11-24] MEDS: benztropine 1 mg Tablet PO ×2 (09:15→20:20)
[2022-11-24] MEDS: ARIPiprazole 30 mg Tablet PO (09:15)
[2022-11-24] MEDS: haloperidol 5 mg Tablet PO (09:16)
[2022-11-24 14:00] VITALS: BP 121/79; PULSE 104; RESP 18; TEMP 36.4; O2SAT 98
[2022-11-24] MEDS: nicotine 2 mg Gum BUCCAL (15:36)
--- NOTE | 2022-11-24 18:09 | P.NPUPN_ITS ---
Subjective NPU Subjective: Patient is in today reporting that he was doing better. Staff report much less intrusiveness. He seemed to have clearer assessment of himself and what was going on around him. More social in a more successful way. He denied psychosis or feelings of priscila. Mental Status Exam MSE Comments: This is a well-nourished, well-developed slender, white male, in hospital scrubs, with adequate grooming and eye contact. No bizarre gestures noted. Still poor boundaries but improving. Speech was more normal rate and volume and less pressured and more prosody. Mood described as better. Affect was less labile and congruent. Thought process was less tangential. Thought content: patient denied any suicidal or homicidal ideation, there were no delusions reported and less paranoia noted. He started to show less evidence of grandiosity and ideas of reference. He did not appear to be responding to internal stimuli and denied on interview. He continued to show less suggestion of bleeding in infinite power and intelligence. His recent and remote memory appeared grossly intact. Alert and oriented times 3. Insight improving. His judgment and impulse control are impaired, but improving. Vitals/I&O/Wt Last Vital Signs Temp 98.1 F 11/24/22 22:00 Pulse 104 H 11/24/22 22:00 Resp 16 11/24/22 22:00 BP 137/97 11/24/22 22:00 Pulse Ox 96 11/24/22 22:00 O2 Del Method Room Air 11/24/22 22:00 Data NPU 11/05/22 12:40 A&P Assessment and plan (1) Bipolar disorder with psychotic features: (2) Priscila: Plan This is a 27-year-old white male with a reported history of previous bipolar episode at least once who presents in avel priscila with significant movements of limited purpose 1. Continue current medications 2. Encourage individual, group, and milieu therapy. 3. Continue every 15 minute checks for safety 4. Recommend sober living treatment at the highest level of care to which the patient is willing to commit. 5. Patient is now on a 90-day hold. Increased Invega 9mg daily and Continue haldol 5mg in am, 10mg at night increased Klonopin to 2mg po bid. Prn Haldol 10mg for agitation not to exceed 30mg/24 hours. Discontinued Klonopin morning dose, decreasing Klonopin to 2 mg p.o. nightly and started Abilify 5 mg p.o. and increased to 10 mg. Increased to 15 mg, then to 20 mg on 11/21/2022. Likely increase to 30 mg tomorrow. And Patient has had some response to Invega but not enough to feel confident about the injection. We chose Abilify for augmentation versus switching, only time will tell and considered lithium or Depakote. Family reports Depakote trial was less than impressive and patient reports lithium is not good for him. We decreased night Klonopin to 1 mg. 6. 90-day hold granted. 7. Patient had a fairly cogent day with much better cognitive interactions and seemed to respond very well to the increase in Abilify to 30 mg 11/24/2022. Attestations NPU Medical Necessity Statement*: Inpatient hospitalization is medically necessary and the clinically appropriate intervention, at this time. He continues to have challenging behaviors. We will monitor medications and make changes as indicated. Likely length of stay is 8-11 days. Coding Level of Care Code Acute Code for [facility] Diagnoses Bipolar disorder with psychotic features F31.9 Priscila F30.9
[2022-11-24] MEDS: paliperidone ER 9 mg Tablet PO (20:20)
[2022-11-24] MEDS: haloperidol 5 mg Tablet 10 MG PO (20:20)
[2022-11-24] MEDS: CLONazepam 1 mg Tablet PO (20:21)
[2022-11-24] MEDS: trazodone 50 mg Tablet PO (20:21)
[2022-11-24 22:00] VITALS: BP 137/97; PULSE 104; RESP 16; TEMP 36.7; O2SAT 96
[2022-11-25 06:00] VITALS: BP 110/65; PULSE 81; RESP 16; TEMP 36.6; O2SAT 98
[2022-11-25] MEDS: ARIPiprazole 30 mg Tablet PO (09:27)
[2022-11-25] MEDS: CLONazepam 1 mg Tablet PO (09:27)
[2022-11-25] MEDS: haloperidol 5 mg Tablet PO (09:27)
[2022-11-25] MEDS: benztropine 1 mg Tablet PO ×2 (09:29→20:12)
--- NOTE | 2022-11-25 13:10 | W.PM.NPUPNS ---
Subjective NPU Subjective: Patient presented today reporting that he is continuing to feel better. Staff report much less intrusiveness. He seemed to have clearer assessment of himself and what was going on around him. More engaging and less grating He denied psychosis or feelings of priscila. Mental Status Exam MSE Comments: This is a well-nourished, well-developed slender, white male, in hospital scrubs, with adequate grooming and eye contact. No bizarre gestures noted. Still poor boundaries but improving. Speech was more normal rate and volume and less pressured and more prosody. Mood described as better. Affect was congruent. Thought process was less tangential. Thought content: patient denied any suicidal or homicidal ideation, there were no delusions reported and less paranoia noted. He started to show less evidence of grandiosity and ideas of reference. He did not appear to be responding to internal stimuli and denied on interview. He continued to show less suggestion of believing in infinite power and intelligence. His recent and remote memory appeared grossly intact. Alert and oriented times 3. Insight improving. His judgment and impulse control are impaired, but improving. Vitals/I&O/Wt Last Vital Signs Temp 97.9 F 11/25/22 06:00 Pulse 81 11/25/22 06:00 Resp 16 11/25/22 06:00 BP 110/65 11/25/22 06:00 Pulse Ox 98 11/25/22 06:00 O2 Del Method Room Air 11/25/22 06:00 11/24/22 11/25/22 11/25/22 22:59 06:59 14:59 Intake Total 0 / 0 Balance 0 / 0 Data NPU 11/05/22 12:40 A&P Assessment and plan (1) Bipolar disorder with psychotic features: (2) Priscila: Plan This is a 27-year-old white male with a reported history of previous bipolar episode at least once who presents in avel priscila with significant movements of limited purpose 1. Continue current medications 2. Encourage individual, group, and milieu therapy. 3. Continue every 15 minute checks for safety 4. Recommend sober living treatment at the highest level of care to which the patient is willing to commit. 5. Patient is now on a 90-day hold. Increased Invega 9mg daily and Continue haldol 5mg in am, 10mg at night increased Klonopin to 2mg po bid. Prn Haldol 10mg for agitation not to exceed 30mg/24 hours. Discontinued Klonopin morning dose, decreasing Klonopin to 2 mg p.o. nightly and started Abilify 5 mg p.o. and increased to 10 mg. Increased to 15 mg, then to 20 mg on 11/21/2022. Likely increase to 30 mg tomorrow. And Patient has had some response to Invega but not enough to feel confident about the injection. We chose Abilify for augmentation versus switching, only time will tell and considered lithium or Depakote. Family reports Depakote trial was less than impressive and patient reports lithium is not good for him. We decreased night Klonopin to 1 mg. 6. 90-day hold granted. 7. Patient had a fairly cogent day with much better cognitive interactions and seemed to respond very well to the increase in Abilify to 30 mg 11/24/2022. Attestations NPU Medical Necessity Statement*: Inpatient hospitalization is medically necessary and the clinically appropriate intervention, at this time. He continues to have challenging behaviors. We will monitor medications and make changes as indicated. Likely length of stay is 7-10 days. Coding Level of Care Code Acute Code for [facility] Diagnoses Bipolar disorder with psychotic features F31.9 Priscila F30.9
[2022-11-25 14:00] VITALS: BP 95/63; PULSE 99; RESP 16; TEMP 36.6; O2SAT 98
[2022-11-25] MEDS: paliperidone ER 9 mg Tablet PO (20:12)
[2022-11-25] MEDS: haloperidol 5 mg Tablet 10 MG PO (20:12)
[2022-11-25] MEDS: trazodone 50 mg Tablet PO (20:12)
[2022-11-25 22:00] VITALS: BP 120/85; PULSE 105; RESP 18; TEMP 36.8; O2SAT 97
[2022-11-26 06:00] VITALS: BP 103/67; PULSE 78; RESP 17; TEMP 36.7; O2SAT 98
[2022-11-26] MEDS: haloperidol 5 mg Tablet PO (10:04)
[2022-11-26] MEDS: ARIPiprazole 30 mg Tablet PO (10:04)
[2022-11-26] MEDS: benztropine 1 mg Tablet PO ×2 (10:04→20:34)
[2022-11-26] MEDS: nicotine 2 mg Gum BUCCAL (10:06)
[2022-11-26 13:51] VITALS: BP 147/77; PULSE 110; RESP 16; TEMP 36.6; O2SAT 97
--- NOTE | 2022-11-26 17:36 | W.PM.NPUPNS ---
Subjective NPU Subjective: Patient is a 27-year-old white male admitted with priscila and psychosis. The patient had required no as needed medications today. He has been less intrusive and less grandiose on the milieu. Patient reported no feelings of hopelessness. He continued to report that the cause of his priscila was due to him not being able to manage the stress that he knew regarding his cats eventual mortality. The patient had continued to minimize the thought that any substances may have rekindled his mood problems leading to his hospitalization. He had reported greater amounts of sleep recently. He had been more pleasant and redirectable on the milieu. He denied any current side effects from his medication. Mental Status Exam MSE Comments: This is a well-nourished, well-developed slender, white male, in hospital scrubs, with adequate grooming and eye contact With no evidence of any bizarre motor movements and no evidence of problems with poor management of social boundaries noted. Speech was more normal rate and volume and less pressured and more prosody. Mood described as good. His affect was mood congruent. Thought process was less tangential and less expansive. Thought content: patient denied any suicidal or homicidal ideation, there were no delusions reported and less paranoia noted. NO clear ideas of reference. He did not appear to be responding to internal stimuli and denied on interview. His recent and remote memory appeared grossly intact. Alert and oriented times 3. Insight was improving. His judgment and impulse control are impaired, but improving. Vitals/I&O/Wt Last Vital Signs Temp 98 F 11/26/22 13:51 Pulse 110 H 11/26/22 13:51 Resp 16 11/26/22 13:51 BP 147/77 11/26/22 13:51 Pulse Ox 97 11/26/22 13:51 O2 Del Method Room Air 11/26/22 06:00 Data NPU 11/05/22 12:40 A&P Assessment and plan (1) Bipolar disorder with psychotic features: (2) Priscila: Plan This is a 27-year-old white male with a reported history of previous bipolar episode at least once who presents in avel priscila with significant movements of limited purpose 1. Continue current medications 2. Encourage individual, group, and milieu therapy. 3. Continue every 15 minute checks for safety 4. Recommend sober living treatment at the highest level of care to which the patient is willing to commit. 5. Patient is now on a 90-day hold. Continue Invega 9mg daily and Continue haldol 5mg in am, 10mg at night We chose Abilify for augmentation versus switching. Family reports We decreased night Klonopin to 1 mg. 6. 90-day hold granted. 7. Patient had a fairly cogent day with much better cognitive interactions and seemed to respond very well to the increase in Abilify to 30 mg 11/24/2022. Attestations NPU Medical Necessity Statement*: Inpatient hospitalization is medically necessary and the clinically appropriate intervention, at this time. He continues to have challenging behaviors. We will monitor medications and make changes as indicated. Likely length of stay is 3-5 days. Coding Level of Care Code Acute Code for [facility] Diagnoses Bipolar disorder with psychotic features F31.9 Priscila F30.9
[2022-11-26] MEDS: docusate sodium 100 mg Capsule PO (17:57)
[2022-11-26 19:53] VITALS: BP 113/77; PULSE 90; RESP 18; TEMP 36.8; O2SAT 98
[2022-11-26] MEDS: haloperidol 5 mg Tablet 10 MG PO (20:33)
[2022-11-26] MEDS: paliperidone ER 9 mg Tablet PO (20:33)
[2022-11-27 06:00] VITALS: RESP 18; BMI 24.0
[2022-11-27] MEDS: benztropine 1 mg Tablet PO ×2 (08:16→20:09)
[2022-11-27] MEDS: ARIPiprazole 30 mg Tablet PO (08:16)
[2022-11-27] MEDS: haloperidol 5 mg Tablet PO (08:16)
[2022-11-27 13:28] VITALS: BP 122/71; PULSE 93; RESP 16; TEMP 36.6; O2SAT 96
--- NOTE | 2022-11-27 16:32 | P.NPUPN_ITS ---
Subjective NPU Subjective: Patient is a 27-year-old white male admitted with priscila and psychosis with a past history of priscila. The patient appeared less intrusive and did not require as needed medications. He reported feeling calm. He had reported being bored. He had continued to report hesitancy about taking these medications long-term despite being provided history about the likelihood of recurrence of manic s ymptoms in the absence of any mood stabilizer. Patient was provided further instructions regarding an overall wellness plan to reduce the likelihood of the recurrence of priscila including monitoring and engaging in appropriate sleep hygiene and minimizing substance use. Patient had expressed some likelihood of using marijuana upon returning home. He had reported improved sleep and acknowledged having not had significant quantity of sleep on admission.. Mental Status Exam MSE Comments: This is a well-nourished, well-developed slender, white male, in hospital scrubs, with adequate grooming and eye contact there was no evidence of any abnormal involuntary motor movements tics or tremors. His boundaries were within normal limits. Speech was normal in regards to rate rhythm and prosody. Mood described as good. His affect was mood congruent. Thought process was less tangential and less expansive. Thought content: patient denied any suicidal or homicidal ideation, there were no delusions reported and no paranoia noted. NO clear ideas of reference. He did not appear to be responding to internal stimuli and denied on interview. His recent and remote memory appeared grossly intact. Alert and oriented times 3. Insight was improving. His judgment and impulse control are improving. Vitals/I&O/Wt Last Vital Signs Temp 97.8 F 11/27/22 13:28 Pulse 93 11/27/22 13:28 Resp 16 11/27/22 13:28 BP 122/71 11/27/22 13:28 Pulse Ox 96 11/27/22 13:28 O2 Del Method Room Air 11/27/22 13:28 Weight last 48 hrs Weight 78.018 kg Data NPU 11/05/22 12:40 A&P Assessment and plan (1) Bipolar disorder with psychotic features: (2) Priscila: Plan This is a 27-year-old white male with a reported history of previous bipolar episode at least once who presents in avel priscila with significant movements of limited purpose 1. Continue current medications 2. Encourage individual, group, and milieu therapy. 3. Continue every 15 minute checks for safety 4. Recommend sober living treatment at the highest level of care to which the patient is willing to commit. 5. Patient is now on a 90-day hold. Reduce Invega 6mg daily and Continue haldol 5mg in am, 10mg at night. Continue Abilify 30mg daily. Patient remains on 90 day hold. Attestations NPU Medical Necessity Statement*: Inpatient hospitalization is medically necessary and the clinically appropriate intervention, at this time. He continues to have challenging behaviors. We will monitor medications and make changes as indicated. Likely length of stay is 3-5 days. Coding Level of Care Code Acute Code for [facility] Diagnoses Bipolar disorder with psychotic features F31.9 Priscila F30.9
[2022-11-27] MEDS: hyDROXYzine 25 mg Capsule 50 MG PO (17:21)
--- NOTE | 2022-11-27 17:21 | PC.NURSE ---
PRN VISTARIL 50 MG GIVEN PO PER PT C/O STATED ANXIETY, REQUESTED TO NOT HAVE KLONOPIN
[2022-11-27] MEDS: haloperidol 5 mg Tablet 10 MG PO (20:09)
[2022-11-27] MEDS: trazodone 50 mg Tablet PO (20:09)
[2022-11-27] MEDS: paliperidone ER 9 mg Tablet PO (20:09)
[2022-11-27 20:37] VITALS: BP 129/95; PULSE 120; RESP 18; TEMP 36.8; O2SAT 97
[2022-11-28] MEDS: benztropine 1 mg Tablet PO ×2 (07:55→22:13)
[2022-11-28] MEDS: ARIPiprazole 30 mg Tablet PO (07:55)
[2022-11-28] MEDS: haloperidol 5 mg Tablet PO (07:55)
[2022-11-28] MEDS: hyDROXYzine 25 mg Capsule 50 MG PO (10:24)
[2022-11-28] MEDS: nicotine 2 mg Gum BUCCAL (11:25)
[2022-11-28 14:00] VITALS: BP 112/71; PULSE 120; RESP 16; TEMP 36.8; O2SAT 96
[2022-11-28 19:39] VITALS: BP 126/78; PULSE 102; RESP 16; TEMP 36.6; O2SAT 97
--- NOTE | 2022-11-28 19:39 | P.NPUPN_ITS ---
Subjective NPU Subjective: Patient is a 27-year-old white male admitted with priscila and psychosis with a past history of priscila leading to extended hospitalization time. The patient appeared to have no worsening mood. He denied any racing thoughts and reported adequate sleep. He reported no feelings of sadness. He had reported continued concerns about taking medications to prevent priscila but stated that he was th inking about it. He had reported having good conversation with family and was hopeful at returning home. He had been far less intrusive on the milieu and did not require the as needed use of medications. Mental Status Exam MSE Comments: This is a well-nourished, well-developed slender, white male, in hospital scrubs, with adequate grooming and eye contact there was no evidence of any abnormal involuntary motor movements tics or tremors. His boundaries were within normal limits. Speech was normal in regards to rate rhythm and prosody. Mood described as allright. His affect was mood congruent and pleasant. Thought process was linear and logical. Thought content: patient denied any suicidal or homicidal ideation, there were no delusions reported and no paranoia noted. NO clear ideas of reference. He did not appear to be responding to internal stimuli and denied on interview. His recent and remote memory appeared grossly intact. Alert and oriented times 3. Insight was improving. His judgment and impulse control are improving. Vitals/I&O/Wt Last Vital Signs Temp 98.2 F 11/28/22 14:00 Pulse 120 H 11/28/22 14:00 Resp 16 11/28/22 14:00 BP 112/71 11/28/22 14:00 Pulse Ox 96 11/28/22 14:00 O2 Del Method Room Air 11/27/22 20:37 Weight last 48 hrs Weight 78.018 kg Data NPU 11/05/22 12:40 A&P Assessment and plan (1) Bipolar disorder with psychotic features: (2) Priscila: Plan This is a 27-year-old white male with a reported history of previous bipolar episode at least once who presents in avel priscila with significant movements of limited purpose 1. Continue current medications, will reduce invega to 6mg tonight with concern regarding polypharmacy as patient is on 3 antipsychotics. 2. Encourage individual, group, and milieu therapy. 3. Continue every 15 minute checks for safety 4. Recommend sober living treatment at the highest level of care to which the patient is willing to commit. 5. Patient is now on a 90-day hold. Reduce Invega 6mg at night and Continue haldol 5mg in am, 10mg at night. Continue Abilify 30mg daily. Patient remains on 90 day hold. Attestations NPU Medical Necessity Statement*: Inpatient hospitalization is medically necessary and the clinically appropriate intervention, at this time. He continues to have challenging behaviors. We will monitor medications and make changes as indicated. Likely length of stay is 4-5 days. Coding Level of Care Code Acute Code for [facility] Diagnoses Bipolar disorder with psychotic features F31.9 Priscila F30.9
[2022-11-28] MEDS: paliperidone ER 6 mg Tablet PO (21:31)
[2022-11-28] MEDS: trazodone 50 mg Tablet PO (21:31)
[2022-11-28] MEDS: haloperidol 5 mg Tablet 10 MG PO (21:31)
[2022-11-29 06:00] VITALS: BP 121/75; PULSE 101; RESP 16; TEMP 36.7; O2SAT 97
--- NOTE | 2022-11-29 06:35 | PC.NURSE ---
Pt up at nurses station getting coffee, when EVS worker came to collect laundry. Pt stated he doesn't like me much. This nurse stated that it was ok, and not to mind the worker he was just here to do his job. Pt became agitated and stated Matthew Joyner I know not everybody is going to like me . Pt then walked away from the nurses station.
[2022-11-29] MEDS: benztropine 1 mg Tablet PO ×2 (08:16→20:00)
[2022-11-29] MEDS: haloperidol 5 mg Tablet PO (08:16)
[2022-11-29] MEDS: ARIPiprazole 30 mg Tablet PO (08:16)
--- NOTE | 2022-11-29 08:32 | PC.NURSE ---
PT CURRENTLY DENIES SI/HI/AH/VH. PT WAS WILLING AND COOPERATIVE DURING ASSESSMENT. PT SPEECH IS SLIGHTLY EXCESSIVE THIS MORNING HOWEVER, PT APPEARS TO BE IN A GOOD MOOD. PT CURRENT NEEDS ARE MET. WILL CONTINUE TO MONITOR.
[2022-11-29 14:00] VITALS: BP 101/61; PULSE 100; RESP 16; TEMP 36.5; O2SAT 97
[2022-11-29] MEDS: docusate sodium 100 mg Capsule PO (14:20)
--- NOTE | 2022-11-29 17:40 | W.PM.NPUPNS ---
Subjective NPU Subjective: Patient is a 27-year-old white male admitted with priscila and psychosis with a past history of priscila leading to extended hospitalization time. 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 He reported no other changes in mood. He had been compliant on the milieu and redirectable. He had been compliant and appeared to tolerate events on the milieu without any major verbal or physical threats. He had been able to take a timeout in his room and reported feeling optimistic about returning home to his family soon. He reported no feelings of hopelessness or worthlessness. He reported no side effects from his medication. Mental Status Exam MSE Comments: This is a well-nourished, well-developed slender, white male, in hospital scrubs, with adequate grooming and eye contact there was no evidence of any abnormal involuntary motor movements tics or tremors. His boundaries were within normal limits. Speech was normal in regards to rate rhythm and prosody. Mood described as okay. His affect was mood congruent and pleasant. Thought process was linear and logical. Thought content: patient denied any suicidal or homicidal ideation, there were no delusions reported and no paranoia noted. NO clear ideas of reference. He did not appear to be responding to internal stimuli and denied on interview. His recent and remote memory appeared grossly intact. Alert and oriented times 3. Insight was improving. His judgment and impulse control are improving. Vitals/I&O/Wt Last Vital Signs Temp 97.7 F 11/29/22 14:00 Pulse 100 11/29/22 14:00 Resp 16 11/29/22 14:00 BP 101/61 11/29/22 14:00 Pulse Ox 97 11/29/22 14:00 O2 Del Method Room Air 11/29/22 14:00 Data NPU 11/05/22 12:40 A&P Assessment and plan (1) Bipolar disorder with psychotic features: (2) Priscila: Plan This is a 27-year-old white male with a reported history of previous bipolar episode at least once who presents in avel priscila with significant movements of limited purpose 1. Continue current medications, will reduce invega to 6mg tonight with concern regarding polypharmacy as patient is on 3 antipsychotics. 2. Encourage individual, group, and milieu therapy. 3. Continue every 15 minute checks for safety 4. Recommend sober living treatment at the highest level of care to which the patient is willing to commit. 5. Continue Invega 6mg at night and Continue haldol 5mg in am, 10mg at night. Continue Abilify 30mg daily. Patient remains on 90 day hold. Attestations NPU Medical Necessity Statement*: Inpatient hospitalization is medically necessary and the clinically appropriate intervention, at this time. He continues to have challenging behaviors. We will monitor medications and make changes as indicated. Likely length of stay is 4-5 days. Coding Level of Care Code Acute Code for [facility] Diagnoses Bipolar disorder with psychotic features F31.9 Priscila F30.9
[2022-11-29] MEDS: hyDROXYzine 25 mg Capsule 50 MG PO (17:53)
[2022-11-29] MEDS: haloperidol 5 mg Tablet 10 MG PO (20:00)
[2022-11-29] MEDS: paliperidone ER 6 mg Tablet PO (20:00)
[2022-11-29] MEDS: trazodone 50 mg Tablet PO (20:01)
[2022-11-29 22:00] VITALS: BP 116/86; PULSE 107; RESP 18; TEMP 36.5; O2SAT 97
[2022-11-30 06:00] VITALS: BP 104/66; PULSE 87; RESP 16; TEMP 36.8; O2SAT 95
[2022-11-30] MEDS: haloperidol 5 mg Tablet PO (08:21)
[2022-11-30] MEDS: benztropine 1 mg Tablet PO ×2 (08:21→20:35)
[2022-11-30] MEDS: ARIPiprazole 30 mg Tablet PO (08:21)
[2022-11-30 14:00] VITALS: BP 90/59; PULSE 114; RESP 17; TEMP 36.8; O2SAT 99
--- NOTE | 2022-11-30 19:14 | P.NPUPN_ITS ---
Subjective NPU Subjective: Patient is a 27-year-old white male admitted with priscila and psychosis with a past history of priscila leading to extended hospitalization time. The patient had complained of having problems with anxiety but was able to calm himself down. He reported no change in sleep with the reduction in Invega. He reported no change in appetite. He remained hopeful about being able to go home. He con tinued to question whether he would take these medications along term but stated that he was feeling better than when he first came into the hospital. He had continued to at times be less intrusive but still was social and was able to redirect himself when any escalation occurred on the milieu. He reported no change in appetite. Mental Status Exam MSE Comments: This is a well-nourished, well-developed slender, white male, in hospital scrubs, with adequate grooming and eye contact there was no evidence of any abnormal involuntary motor movements tics or tremors. His boundaries were within normal limits. Speech was normal in regards to rate rhythm and prosody. Mood described as good. His affect was mood congruent and pleasant. Thought process was linear and logical. Thought content: patient denied any suicidal or homicidal ideation, there were no delusions reported and no paranoia noted. NO clear ideas of reference. He did not appear to be responding to internal stimuli and denied on interview. His recent and remote memory appeared grossly intact. He was Alert and oriented x3. Insight was improving. His judgment and impulse control are improving. Vitals/I&O/Wt Last Vital Signs Temp 98.3 F 11/30/22 14:00 Pulse 114 H 11/30/22 14:00 Resp 17 11/30/22 14:00 BP 90/59 11/30/22 14:00 Pulse Ox 99 11/30/22 14:00 O2 Del Method Room Air 11/30/22 06:00 Data NPU 11/05/22 12:40 A&P Assessment and plan (1) Bipolar disorder with psychotic features: (2) Priscila: Plan This is a 27-year-old white male with a reported history of previous bipolar episode at least once who presents in avel priscila with significant movements of limited purpose 1. Continue current medications, will reduce invega to 6mg tonight with concern regarding polypharmacy as patient is on 3 antipsychotics. 2. Encourage individual, group, and milieu therapy. 3. Continue every 15 minute checks for safety 4. Recommend sober living treatment at the highest level of care to which the patient is willing to commit. 5. Reduce Invega 3mg at night and Continue haldol 5mg in am, 10mg at night. Continue Abilify 30mg daily. Patient remains on 90 day hold. Attestations NPU Medical Necessity Statement*: Inpatient hospitalization is medically necessary and the clinically appropriate intervention, at this time. He continues to have challenging behaviors. We will monitor medications and make changes as indicated. Likely length of stay is 4-5 days. Coding Level of Care Code Acute Code for [facility] Diagnoses Bipolar disorder with psychotic features F31.9 Priscila F30.9
[2022-11-30] MEDS: haloperidol 5 mg Tablet 10 MG PO (20:35)
[2022-11-30] MEDS: paliperidone ER 6 mg Tablet PO (20:35)
[2022-11-30] MEDS: trazodone 50 mg Tablet PO (20:36)
[2022-11-30 22:00] VITALS: BP 125/80; PULSE 91; RESP 18; TEMP 36.8; O2SAT 96
[2022-12-01 06:00] VITALS: BP 119/74; PULSE 78; RESP 15; TEMP 36.8; O2SAT 97
[2022-12-01] MEDS: haloperidol 5 mg Tablet PO (08:02)
[2022-12-01] MEDS: ARIPiprazole 30 mg Tablet PO (08:02)
[2022-12-01] MEDS: benztropine 1 mg Tablet PO ×2 (10:08→20:29)
[2022-12-01 14:00] VITALS: BP 106/69; PULSE 104; RESP 16; TEMP 36.9; O2SAT 97
--- NOTE | 2022-12-01 18:03 | W.PM.NPUPNS ---
Subjective NPU Subjective: Patient is a 27-year-old white male admitted with priscila and psychosis with a past history of priscila leading to extended hospitalization time. Patient showed no evidence of priscila. He continued to have good conversations with his family and stated that he was feeling close to being ready to go home. He reported no worsening in his mood or sleep patterns with the reduction in Invega. The patient reported no sleep continuity disruption. He had been less intrusive on the unit. He reported no feelings of hopelessness and minimized any depression at this time. Mental Status Exam MSE Comments: This is a well-nourished, well-developed slender, white male, in hospital scrubs, with adequate grooming and eye contact there was no evidence of any abnormal involuntary motor movements tics or tremors. His boundaries were within normal limits. Speech was normal in regards to rate rhythm and prosody. Mood described as good. His affect was mood congruent and pleasant. Thought process was linear and logical. Thought content: patient denied any suicidal or homicidal ideation, there were no delusions reported and no paranoia noted. NO clear ideas of reference. He did not appear to be responding to internal stimuli and denied on interview. His recent and remote memory appeared grossly intact. He was Alert and oriented x3. Insight was improving. His judgment has improved and impulse control are improving. Vitals/I&O/Wt Last Vital Signs Temp 98.4 F 12/01/22 14:00 Pulse 104 H 12/01/22 14:00 Resp 16 12/01/22 14:00 BP 106/69 12/01/22 14:00 Pulse Ox 97 12/01/22 14:00 O2 Del Method Room Air 12/01/22 14:00 12/01/22 12/01/22 12/01/22 06:59 14:59 22:59 Intake Total 0 / 0 Balance 0 / 0 Data NPU 11/05/22 12:40 A&P Assessment and plan (1) Bipolar disorder with psychotic features: (2) Priscila: Plan This is a 27-year-old white male with a reported history of previous bipolar episode at least once who presents in avel priscila with significant movements of limited purpose 1. Psychoeducation provided regarding bipolar disorder. 2. Encourage individual, group, and milieu therapy. 3. Continue every 15 minute checks for safety 4. Recommend sober living treatment at the highest level of care to which the patient is willing to commit. 5. Reduced Invega 3mg at night and Continue haldol 5mg in am, 10mg at night. Continue Abilify 30mg daily. Patient remains on 90 day hold. Attestations NPU Medical Necessity Statement*: Inpatient hospitalization is medically necessary and the clinically appropriate intervention, at this time. He continues to have challenging behaviors. We will monitor medications and make changes as indicated. Likely length of stay is 2-3 days. Coding Level of Care Code Acute Code for Chg Fwd Diagnoses Bipolar disorder with psychotic features F31.9 Priscila F30.9
[2022-12-01] MEDS: trazodone 50 mg Tablet PO (20:29)
[2022-12-01] MEDS: paliperidone ER 3 mg Tablet PO (20:29)
[2022-12-01] MEDS: haloperidol 5 mg Tablet 10 MG PO (20:29)
[2022-12-01 22:00] VITALS: BP 119/79; PULSE 88; RESP 18; TEMP 36.8; O2SAT 96
[2022-12-02 06:00] VITALS: BP 102/64; PULSE 79; RESP 17; TEMP 36.9; O2SAT 97
[2022-12-02] MEDS: benztropine 1 mg Tablet PO ×2 (08:57→20:03)
[2022-12-02] MEDS: haloperidol 5 mg Tablet PO (08:58)
[2022-12-02] MEDS: ARIPiprazole 30 mg Tablet PO (08:58)
[2022-12-02 14:00] VITALS: BP 118/74; PULSE 90; RESP 16; TEMP 36.9; O2SAT 96
--- NOTE | 2022-12-02 15:57 | W.PM.NPUPNS ---
Subjective NPU Subjective: Patient is a 27-year-old white male admitted with priscila and psychosis with a past history of priscila leading to extended hospitalization time. The patient denied any racing thoughts. He reported no worsening of mood symptoms with the reduction in Invega to 3 mg. He reported having hope to return home. He reported that he did think he needed to be on these medications. He did not endorse motivation to stop smoking marijuana despite concerns that it may have kindled his priscila. He reported no feelings of hopelessness. He had been compliant and not intrusive on the milieu. He had reported having his thoughts being clear. He had no sleep disturbance. Mental Status Exam MSE Comments: This is a well-nourished, well-developed slender, white male, in hospital scrubs, with adequate grooming and eye contact there was no evidence of any abnormal involuntary motor movements tics or tremors. His boundaries were within normal limits. Speech was normal in regards to rate rhythm and prosody. Mood described as better. His affect was mood congruent and pleasant. Thought process was linear and logical. Thought content: patient denied any suicidal or homicidal ideation, there were no delusions reported and no paranoia noted. NO clear ideas of reference. He did not appear to be responding to internal stimuli and denied on interview. His recent and remote memory appeared grossly intact. He was Alert and oriented x3. Insight was improving. His judgment has improved and impulse control are improving. Vitals/I&O/Wt Last Vital Signs Temp 98.4 F 12/02/22 06:00 Pulse 79 12/02/22 06:00 Resp 17 12/02/22 06:00 BP 102/64 12/02/22 06:00 Pulse Ox 97 12/02/22 06:00 O2 Del Method Room Air 12/02/22 06:00 12/02/22 12/02/22 12/02/22 06:59 14:59 22:59 Intake Total 0 / 0 Balance 0 / 0 Data NPU 11/05/22 12:40 A&P Assessment and plan (1) Bipolar disorder with psychotic features: (2) Priscila: Plan This is a 27-year-old white male with a reported history of previous bipolar episode at least once who presents in avel priscila with significant movements of limited purpose 1. Psychoeducation provided regarding bipolar disorder. 2. Encourage individual, group, and milieu therapy. 3. Continue every 15 minute checks for safety 4. Recommend sober living treatment at the highest level of care to which the patient is willing to commit. 5. Discontinue Invega tonight and Continue haldol 5mg in am, 10mg at night. Continue Abilify 30mg daily. Patient remains on 90 day hold. Attestations NPU Medical Necessity Statement*: Inpatient hospitalization is medically necessary and the clinically appropriate intervention, at this time. He continues to have challenging behaviors. We will monitor medications and make changes as indicated. Likely length of stay is 2-3 days. Coding Level of Care Code Acute Code for Chg Fwd Diagnoses Bipolar disorder with psychotic features F31.9 Priscila F30.9
[2022-12-02] MEDS: nicotine 2 mg Gum BUCCAL (20:03)
[2022-12-02] MEDS: haloperidol 5 mg Tablet 10 MG PO (20:03)
[2022-12-02 22:00] VITALS: BP 118/71; PULSE 103; RESP 18; TEMP 37.1; O2SAT 98
[2022-12-03 06:00] VITALS: BP 100/65; PULSE 80; RESP 20; TEMP 37.1; O2SAT 96
[2022-12-03] MEDS: benztropine 1 mg Tablet PO (08:03)
[2022-12-03] MEDS: haloperidol 5 mg Tablet PO (08:03)
[2022-12-03] MEDS: ARIPiprazole 30 mg Tablet PO (08:03)
--- NOTE | 2022-12-03 08:58 | P.NPUDS_ITS ---
Diagnoses at Discharge Discharge Diagnosis (1) Bipolar disorder with psychotic features: Status: Acute (2) Priscila: Status: Acute Reason for Visit Reason for Visit: Fit for confinement Discharge Data Studies Completed and Pending: Laboratory Results WBC 8.9 10^3/uL (4.0- 10.0) 11/05/22 12:40 RBC 4.47 10^6/uL (4.1 -5.3) 11/05/22 12:40 Hgb 13.6 g/dL (11.7-1 6.6) 11/05/22 12:40 Hct 39.9 % (42.0-52.0 ) L 11/05/22 12:40 MCV 89.3 fl (80-94) 11/05/22 12:40 MCH 30.4 pg (28.0-34. 0) 11/05/22 12:40 MCHC 34.1 g/dL (30.0-3 6.0) 11/05/22 12:40 RDW 12.5 % (12.1-15.1 ) 11/05/22 12:40 Plt Count 277 10^3/cmm (130 -400) 11/05/22 12:40 MPV 9.6 fL (7.4-10.4) 11/05/22 12:40 Total Counted 100 (0-100) 11/05/22 12:40 Atypical Lymphs % 0.0 % (0-5) 11/05/22 12:40 Absolute Neutrophi ls 5.9 10^3/cmm (1.4 -6.5) 11/05/22 12:40 Segmented Neutroph ils 65 % 11/05/22 12:40 Abs Segm Neuts (Ma n) 5.8 10/cmm (1.6-7 .1) 11/05/22 12:40 Band Neutrophils 1.0 % 11/05/22 12:40 Abs Band Neuts (Ma n) 0.1 10^3/cmm (0.0 -1.2) 11/05/22 12:40 Absolute Lymphocyt es 2.3 10^3/cmm (1.2 -3.4) 11/05/22 12:40 Lymphocytes (Manua l) 26 % 11/05/22 12:40 Monocytes (Manual) 2.0 % 11/05/22 12:40 Absolute Monocytes 0.2 10^3/cmm (0.1 -0.6) 11/05/22 12:40 Eosinophils (Manua l) 5 % 11/05/22 12:40 Absolute Eosinophi ls 0.4 10^3/cmm (0.0 -0.7) 11/05/22 12:40 Basophils (Manual) 0.0 % 11/05/22 12:40 Absolute Basophils 0.0 10^3/cmm (0.0 -0.2) 11/05/22 12:40 Metamyelocytes 1.0 % 11/05/22 12:40 Smudge Cells Trace 11/05/22 12:40 Platelet Estimate Normal (Normal) 11/05/22 12:40 Giant Platelets Trace 11/05/22 12:40 PT 13.10 SECONDS (12 .1-14.9) 11/05/22 12:40 INR 0.97 (0.8-1.2) 11/05/22 12:40 APTT 29.8 SECONDS (23. 9-36.7) 11/05/22 12:40 Vitals: Last Vital Signs Temp 98.7 F 12/03/22 06:00 Pulse 80 12/03/22 06:00 Resp 20 H 12/03/22 06:00 BP 100/65 12/03/22 06:00 Pulse Ox 96 12/03/22 06:00 O2 Del Method Room Air 12/03/22 06:00 Discharge Plan Discharge Patient Disposition: Home Condition: Stable Prescriptions: New haloperidol 5 mg Tablet 5 mg PO DAILY 30 Days Qty: 30 1RF haloperidol 5 mg Tablet 10 mg PO BEDTIME 30 Days Qty: 60 1RF aripiprazole 30 mg Tablet 30 mg PO DAILY 30 Days Qty: 30 1RF benztropine 1 mg Tablet 1 mg PO 0900,2100 30 Days Qty: 60 1RF No Action No Known Home Medications Discharge Orders: Discharge Order (Routine); Ordered 12/03/22 Ordered By: Dwaine Prakash Referrals: [facility] [Other] - 1-3 days (Walk in for services Monday thru Monday 8am to 4pm) [facility] [Other] - 12/09/22 1:00 pm (Appointment with Dr. Pedroza. ) Discharge Diet: Usual diet Discharge Activity: Resume usual activity Patient Instructions: Opioid Safety Discharge Attestations NPU Time Spent in Discharge Care*: less than 30 min Coding Level of Care Code Acute Chg FW DC note Diagnoses Bipolar disorder with psychotic features F31.9 Priscila F30.9
[2022-12-03 09:33] VITALS: BP 100/65; PULSE 80; RESP 20; TEMP 37.1; O2SAT 96
--- NOTE | 2022-12-03 18:12 | W.PM.NPUDCS ---
Diagnoses at Discharge Discharge Diagnosis (1) Bipolar disorder with psychotic features: Status: Acute (2) Priscila: Status: Acute Reason for Visit Reason for Visit: Fit for confinement Brief History: History of Present Illness Jhonatan Clemente is a 27 year old male who presented to the outside hospital with psychosis on a 96-hour hold.? He was transferred to [facility] and admitted to the neuropsychiatric unit for definitive treatment of those issues. He reports that he has had previous psychiatric hospitalizations. When asked about previous treatment he asked if it would just be faster to talk to his parents about his medical history. When asked about being on medications in the past, he stated ?if you consider marijuana a medication.? He reports that he has smoked cigarettes, and asked this television script writer if I had cigarettes because he would appreciate getting one. He denies vaping in awhile. He reports that he has not had alcohol ?in a minute,? for a few weeks since he has been to a bunch of hospitals. He denies marijuana use for about three weeks, he reports probably using marijuana regularly. He denies methamphetamine use and endorses that he tried cocaine once. He reports that he went to drug rehabilitation. He then left the interview.? He was quite bizarre during the interview with very demonstrative arm gestures and facial contortions depending on how annoyed he was with the question.? Was unable to get any additional history PSYCHIATRIC HISTORY: As above. SUBSTANCE ABUSE HISTORY: As above.? Hospital Course Hospital Course At the time of discharge, lethality was denied and psychosis was resolving. Mood and anxiety were well managed. The patient endorsed a plan to avoid all drugs of abuse and follow up with the aftercare recommendations of the treatment team. The patient was evaluated and deemed to be absent credible lethality and had achieved the maximum benefit from an inpatient hospitalization, and so was discharged. The patient had a prolonged hospitalization as the patient had engaged in bizarre behavior with continued active manic symptoms with decreased need for sleep, continued grandiosity, excess intrusiveness while engaged in signficant verbal threats to others. He was eventually placed on an involuntary hold for up to 90 days. Invega was initiated first to target priscila with psychosis but was ineffective as a single agent. Eventually Abilify was added and titrated up to 30mg daily with Haldol started as well with a titration up to 15mg/day prior to discharge. He showed great improvement regarding priscila with near complete resolution of symptoms. In his last week prior to discharge, Invega was tapered and discontinued prior to discharge with no worsening of symptoms. Patient was strongly encouraged to remain on these medications and avoid substances of abuse to prevent recurrence of priscila. Mental Status Exam MSE Comments: This is a well-nourished, well-developed slender, white male, in hospital scrubs, with adequate grooming and eye contact there was no evidence of any abnormal involuntary motor movements tics or tremors. His boundaries were within normal limits. Speech was normal in regards to rate rhythm and prosody. Mood described as better. His affect was mood congruent and pleasant. Thought process was linear and logical. Thought content: patient denied any suicidal or homicidal ideation, there were no delusions reported and no paranoia noted. NO clear ideas of reference. He did not appear to be responding to internal stimuli and denied on interview. His recent and remote memory appeared grossly intact. He was Alert and oriented x3. Insight was improved. His judgment has improved and impulse control are improved. Discharge Data Studies Completed and Pending: Laboratory Results WBC 8.9 10^3/uL (4.0- 10.0) 11/05/22 12:40 RBC 4.47 10^6/uL (4.1 -5.3) 11/05/22 12:40 Hgb 13.6 g/dL (11.7-1 6.6) 11/05/22 12:40 Hct 39.9 % (42.0-52.0 ) L 11/05/22 12:40 MCV 89.3 fl (80-94) 11/05/22 12:40 MCH 30.4 pg (28.0-34. 0) 11/05/22 12:40 MCHC 34.1 g/dL (30.0-3 6.0) 11/05/22 12:40 RDW 12.5 % (12.1-15.1 ) 11/05/22 12:40 Plt Count 277 10^3/cmm (130 -400) 11/05/22 12:40 MPV 9.6 fL (7.4-10.4) 11/05/22 12:40 Total Counted 100 (0-100) 11/05/22 12:40 Atypical Lymphs % 0.0 % (0-5) 11/05/22 12:40 Absolute Neutrophi ls 5.9 10^3/cmm (1.4 -6.5) 11/05/22 12:40 Segmented Neutroph ils 65 % 11/05/22 12:40 Abs Segm Neuts (Ma n) 5.8 10/cmm (1.6-7 .1) 11/05/22 12:40 Band Neutrophils 1.0 % 11/05/22 12:40 Abs Band Neuts (Ma n) 0.1 10^3/cmm (0.0 -1.2) 11/05/22 12:40 Absolute Lymphocyt es 2.3 10^3/cmm (1.2 -3.4) 11/05/22 12:40 Lymphocytes (Manua l) 26 % 11/05/22 12:40 Monocytes (Manual) 2.0 % 11/05/22 12:40 Absolute Monocytes 0.2 10^3/cmm (0.1 -0.6) 11/05/22 12:40 Eosinophils (Manua l) 5 % 11/05/22 12:40 Absolute Eosinophi ls 0.4 10^3/cmm (0.0 -0.7) 11/05/22 12:40 Basophils (Manual) 0.0 % 11/05/22 12:40 Absolute Basophils 0.0 10^3/cmm (0.0 -0.2) 11/05/22 12:40 Metamyelocytes 1.0 % 11/05/22 12:40 Smudge Cells Trace 11/05/22 12:40 Platelet Estimate Normal (Normal) 11/05/22 12:40 Giant Platelets Trace 11/05/22 12:40 PT 13.10 SECONDS (12 .1-14.9) 11/05/22 12:40 INR 0.97 (0.8-1.2) 11/05/22 12:40 APTT 29.8 SECONDS (23. 9-36.7) 11/05/22 12:40 Vitals: Last Vital Signs Temp 98.7 F 12/03/22 09:33 Pulse 80 12/03/22 09:33 Resp 20 H 12/03/22 09:33 BP 100/65 12/03/22 09:33 Pulse Ox 96 12/03/22 09:33 O2 Del Method Room Air 12/03/22 06:00 Discharge Plan Discharge Patient Disposition: Home Condition: Stable Prescriptions: New haloperidol 5 mg Tablet 5 mg PO DAILY 30 Days Qty: 30 1RF haloperidol 5 mg Tablet 10 mg PO BEDTIME 30 Days Qty: 60 1RF aripiprazole 30 mg Tablet 30 mg PO DAILY 30 Days Qty: 30 1RF benztropine 1 mg Tablet 1 mg PO 0900,2100 30 Days Qty: 60 1RF No Action No Known Home Medications Discharge Orders: Discharge Order (Routine); Ordered 12/03/22 Ordered By: Dwaine Prakash Referrals: [facility] [Other] - 1-3 days (Walk in for services Monday thru Monday 8am to 4pm) [facility] [Other] - 12/09/22 1:00 pm (Appointment with Dr. Pedroza. ) Discharge Diet: Usual diet Discharge Activity: Resume usual activity Patient Instructions: Opioid Safety Discharge Attestations NPU Time Spent in Discharge Care*: less than 30 min Coding Level of Care Code Acute Chg FW DC note Diagnoses Bipolar disorder with psychotic features F31.9 Priscila F30.9
== END 2022-12-03 10:30 | DRG 884 ==
PROVIDERS: Admitting Provider Psychiatry & Neurology Psychiatry; Visit Provider Psychiatry & Neurology Psychiatry
DX: F06.33 Mood disorder due to known physiological condition with manic features (principal); F17.210 Nicotine dependence, cigarettes, uncomplicated; F12.90 Cannabis use, unspecified, uncomplicated
CPT/HCPCS: 36415; 85007; 85027; 85610; 85730; 96372; 97150; 97165; 99238; J1200; J1630; J2060; J3486; Q0163